=== PATIENT | male | born 1940 | race Caucasian/White ===

== ENCOUNTER 2019-07-19 04:14 | Inpatient (IN) | payer OTHER ==
[2019-07-19] VITALS (17 sets, daily range): BP systolic 64–144
[~2019-07-19] VITALS: Ht 175.3 cm; Wt 94.8 kg
[2019-07-19] MEDS ORDERED: NACL 0.9% 1,000 ML IV ONE ×2 (04:24→06:45)
--- NOTE | 2019-07-19 04:24 | NUR ---
Pt BIB [facility] from home with c/o altered mental status, paleness, diaphoretic and dark stool. Pt A&Ox4. 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 Per son, pt has history of seizure, DM, hypertension, high cholesterol and CVA. Per EMS, blood glucose was 546 en route. Per EMS, 20 g started on right hand and 1 bolus NS started. Blood glucose is 501 upon arrival to ER. Per son, pt had one episode of black tarry stool today. Upon assessment, pt is diaphoretic. Pt denies pain at this time. Breath sounds bilaterally clear with no use of accessory muscles. Will continue to monitor.
--- NOTE | 2019-07-19 04:25 | NUR ---
Placed in room 03 . Placed on groundwater monitoring technician, blood pressure machine and pulse oximeter. To gown for exam. Side rails up. Report given to Kayleigh HARRIS.
[2019-07-19] MEDS ORDERED: HUM100IN SQ (04:30)
[2019-07-19] MEDS ORDERED: TAMS-11 PO (04:30)
[2019-07-19] MEDS ORDERED: CLOP75TA32 PO (04:30)
[2019-07-19] MEDS ORDERED: ASPI-1153 PO (04:30)
[2019-07-19] MEDS ORDERED: FERR-69 PO (04:30)
[2019-07-19] MEDS ORDERED: DUTA0.5C PO (04:30)
[2019-07-19] MEDS ORDERED: LISI-600 PO (04:30)
[2019-07-19] MEDS ORDERED: ATOR-1 PO (04:30)
--- NOTE | 2019-07-19 04:31 | NUR ---
Medication reconciliation completed with information provided by patient's medication bottles. Any prior medication reconciliation on file was reviewed and corrected.
--- NOTE | 2019-07-19 04:35 | NUR ---
ER Dr. Hoffman at bedside examining patient.
--- NOTE | 2019-07-19 04:40 | NUR ---
1 episode of 200ml of bloody emesis. Dr. Hoffman notified
[2019-07-19] MEDS ORDERED: PANTOPRAZOLE SODIUM 80 MG in NS 100 ML IV ONE (04:45)
[2019-07-19] MEDS ORDERED: PANTOPRAZOLE SODIUM 40 MG in NS 50 ML IV ONE (04:45)
[2019-07-19] MEDS ORDERED: ONDANSETRON HCL 4 MG/2 ML VIAL IVP ONE (04:45)
[2019-07-19] MEDS ORDERED: INSULIN REGULAR, HUMAN 10 UNITS/0.1 ML INJ IVP ONE (04:45)
--- NOTE | 2019-07-19 04:45 | NUR ---
# 20 gauge angiocath placed to L AC. Use of asceptic technique. Opsite placed over site. Blood return noted. Blood for lab drawn from site. Flushed with 10 cc of normal saline. No evidence of infiltration noted. Patient tolerated well.
--- NOTE | 2019-07-19 04:50 | NUR ---
KIMBERLY Person at bedside medicating pt.
--- NOTE | 2019-07-19 04:50 | NUR ---
Radiology at bedside.
[2019-07-19] MEDS ORDERED: PANTOPRAZOLE SODIUM 40 MG/VIAL (PROTONIX) ONE ×2 (05:00→06:07)
[2019-07-19 05:06] LABS: BASOPHILS % (AUTO) 0.2 % (0.0-2.0); LYMPHOCYTES # (AUTO) 0.8 K/uL (1.0-5.5); MEAN CORPUSCULAR HEMOGLOBIN 31 pg (27-31); MEAN CORPUSCULAR HGB CONC 33 % (32-36); MEAN CORPUSCULAR VOLUME 93 fL (79.0-98.0); MONOCYTES # (AUTO) 0.3 K/uL (0.0-1.0); MONOCYTES % (AUTO) 2.8 % (1.7-9.3); NEUTROPHILS # (AUTO) 10.7 K/uL (1.8-7.7); PLATELET COUNT (AUTO) 259 K/uL (130-430); RED BLOOD CELL COUNT(AUTO) 2.28 MIL/uL (4.2-6.2); RED CELL DISTRIBUTION WIDTH 14.2 % (9.0-15.0); WHITE BLOOD COUNT (AUTO) 11.9 K/uL (4.8-10.8)
[2019-07-19 05:09] LABS: HEMATOCRIT 21.3 % (36-54)
--- NOTE | 2019-07-19 05:11 | NUR ---
Provided pt with urinal. Pt voided 200 ML of light yellow urine. Urine sample collected and sent to lab. Will continue to monitor.
[2019-07-19 05:22] LABS: ANION GAP 16 (5-15); CALCIUM 7.6 mg/dL (8.4-11.0); CHLORIDE 103 mmol/L (98-107); CREATININE 2.09 mg/dL (0.55-1.30); POTASSIUM 5.6 mmol/L (3.5-5.1); PROTHROMBIN TIME 10.3 SECS (9.5-12.5); SODIUM SERUM 134 mmol/L (136-145); UREA NITROGEN, BLOOD 94 mg/dL (8-21)
[2019-07-19 05:25] LABS: ALANINE AMINOTRANSFERASE 31 U/L (12-78); ALBUMIN 2.4 g/dL (3.4-4.8); ASPARTATE AMINOTRANSFERASE 15 U/L (10-37); TOTAL BILIRUBIN 0.1 mg/dL (0.0-1.0)
[2019-07-19 05:37] LABS: GLUCOSE 542 mg/dL (70-99)
--- NOTE | 2019-07-19 06:00 | NUR ---
Pt medicated per MD orders. Pt tolerated well. Will continue to monitor.
[2019-07-19 06:28] LABS: BILIRUBIN,URINE NEGATIVE (NEGATIVE); BLOOD, URINE NEGATIVE (NEGATIVE); CLARITY/URINE CLEAR (CLEAR); COLOR,URINE YELLOW (YELLOW); GLUCOSE,URINE 3+ (NEGATIVE); KETONES,URINE TRACE (NEGATIVE); LEUKOCYTE ESTERASE ,URINE NEGATIVE (NEGATIVE); NITRITE, URINE NEGATIVE (NEGATIVE); PH,URINE 5.5 (5.0-8.0); PROTEIN URINE TRACE (NEGATIVE); UROBILINOGEN,URINE 0.2 (0.2-1.0)
[2019-07-19 06:38] LABS: BACTERIA,URINE FEW /HPF (None Seen); RBC,URINE 0-3 /HPF (0-3); WBC,URINE 0-3 /HPF (0-3)
--- NOTE | 2019-07-19 07:11 | NUR ---
Report given to KIMBERLY George to endorse all care.
--- NOTE | 2019-07-19 07:30 | NUR ---
PT RESTING IN BED, FAMILY AT BEDSIDE VSS
[2019-07-19 08:26] LABS: HEMOGLOBIN 5.6 g/dL (14.0-18.0)
[2019-07-19 08:27] LABS: HEMATOCRIT 17.5 % (36-54)
[2019-07-19] MEDS ORDERED: PANTOPRAZOLE SODIUM 40 MG/VIAL (PROTONIX) IVP SCH (09:00)
--- NOTE | 2019-07-19 09:05 | NUR ---
Transferred Pt arrived to ICU via gurney from ER. Pt placed on in room monitor. Bedside report received from Ariel.
--- NOTE | 2019-07-19 09:10 | NUR ---
Patient will be admitted to [facility]. Admitted to ICU3 unit. Will go to room ICU. Belongings list completed. Complete and up to date summary report printed. SBAR report to be given at bedside with opportunity for questions. BEDSIDE REPORT GIVEN TO MIKAYLA.
--- NOTE | 2019-07-19 09:20 | NUR ---
CHG Pt provided CHG tolerated well.
--- NOTE | 2019-07-19 09:34 | NUR ---
CONSULTATION PAGED PRIORITY: ROUTINE REASON FOR CONSULTATION?:UPPER GI BLEED WAS CONSULT CALLED:Y PERSON WHO WAS NOTIFIED:ANA CONSULTING PHYSICIAN:BRADY HEALY PLANT TECHNICIAN SPECIALTY:GI PLANT TECHNICIAN PHONE NUMBER:[phone] REQUESTING LUIS FERNANDO Fraire
--- NOTE | 2019-07-19 09:37 | NUR ---
NEPHROLOGY CONSULT TELLY LONG IS IN ICU DEPARTMENT AND ALREADY AWARE.
[2019-07-19] MEDS ORDERED: DEXTROSE 50% JECT 50 ML DISP.SYRIN IVP PRN (09:45)
[2019-07-19] MEDS ORDERED: NOREPINEPHRINE BITARTRATE 8 MG in NS 242 ML IV PRN (09:45)
[2019-07-19] MEDS ORDERED: LORazepam 2 MG/ML VIAL ONE (10:23)
[2019-07-19 10:32] LABS: BASOPHILS % (AUTO) 0.2 % (0.0-2.0); LYMPHOCYTES # (AUTO) 1.2 K/uL (1.0-5.5); MEAN CORPUSCULAR HEMOGLOBIN 30 pg (27-31); MEAN CORPUSCULAR HGB CONC 32 % (32-36); MEAN CORPUSCULAR VOLUME 95 fL (79.0-98.0); MONOCYTES # (AUTO) 0.5 K/uL (0.0-1.0); MONOCYTES % (AUTO) 3.1 % (1.7-9.3); NEUTROPHILS # (AUTO) 13.1 K/uL (1.8-7.7); NEUTROPHILS % (AUTO) 88.7 % (40.0-70.0); PLATELET COUNT (AUTO) 234 K/uL (130-430); RED BLOOD CELL COUNT(AUTO) 2.03 MIL/uL (4.2-6.2); RED CELL DISTRIBUTION WIDTH 14.4 % (9.0-15.0); WHITE BLOOD COUNT (AUTO) 14.7 K/uL (4.8-10.8)
[2019-07-19 10:45] LABS: HEMATOCRIT 19.2 % (36-54)
[2019-07-19 11:00] LABS: ACETONE, SERUM NEGATIVE (NEGATIVE)
[2019-07-19] MEDS ORDERED: PIPERACILLIN/TAZO 2.25G/DEX-IS 50 ML IV ONE (11:00)
[2019-07-19] MEDS: NACL 0.9% 1,000 ML IV SCH ×2 (11:01→17:09)
[2019-07-19 11:05] LABS: ALANINE AMINOTRANSFERASE 27 U/L (12-78); ALBUMIN 2.2 g/dL (3.4-4.8); ANION GAP 17 (5-15); ASPARTATE AMINOTRANSFERASE 11 U/L (10-37); CALCIUM 7.2 mg/dL (8.4-11.0); CHLORIDE 107 mmol/L (98-107); CREATININE 2.18 mg/dL (0.55-1.30); PHOSPHORUS 3.4 mg/dL (2.7-4.5); POTASSIUM 5.6 mmol/L (3.5-5.1); SODIUM SERUM 137 mmol/L (136-145); TOTAL BILIRUBIN 0.1 mg/dL (0.0-1.0)
[2019-07-19 11:18] LABS: GLUCOSE 533 mg/dL (70-99); UREA NITROGEN, BLOOD 104 mg/dL (8-21)
--- NOTE | 2019-07-19 12:22 | NUR ---
KOLB CATH: # 16 FR Kolb catheter with 10 cc bulb inserted with use of sterile technique. Bulb inflated with 10 cc sterile water. Immediate return of 100 cc clear yellow urine noted. Bedside drainage bag placed below level of bladder. Pt tolerated procedure well.
--- NOTE | 2019-07-19 12:23 | NUR ---
PAGED PAGED GARRISON CHUA FARHAD AT [phone] SPOKE WITH KEVIN.
[2019-07-19] MEDS: INSULIN REGULAR, HUMAN 100 UNITS in NS 99 ML IV PRN ×2 (12:45)
[2019-07-19] MEDS ORDERED: SODIUM BICARBONATE 8.4% VIAL 50 MEQ/50 ML VIAL ONE (12:47)
--- NOTE | 2019-07-19 13:33 | NUR ---
CONSULTATION PAGED PRIORITY: ROUTINE REASON FOR CONSULTATION?:DKA WAS CONSULT CALLED:Y PERSON WHO WAS NOTIFIED:NICK CONSULTING PHYSICIAN:ADAM QUILES SHIPPING SPECIALIST SPECIALTY:ENDO SHIPPING SPECIALIST PHONE NUMBER:[phone] REQUESTING PYHSICIANl:LUIS FERNANDO ADKINS
--- NOTE | 2019-07-19 13:55 | NUR ---
Susan Carlisle RN titrate insulin drip from 5 units to 6 units.
[2019-07-19] MEDS: PANTOPRAZOLE SODIUM 40 MG in NS 50 ML IV SCH ×4 (14:22→23:14)
[2019-07-19] MEDS ORDERED: fentaNYL CITRATE/PF 100 MCG/2 ML AMP ONE ×2 (14:49)
[2019-07-19] MEDS ORDERED: MIDAZOLAM HCL 5 MG/5 ML VIAL ONE ×2 (14:49→14:50)
[2019-07-19] MEDS ORDERED: SIMETHICONE 40 MG/0.6 ML ML ONE (14:50)
[2019-07-19] MEDS ORDERED: METOCLOPRAMIDE HCL 10 MG/2 ML VIAL IVP ONE (15:30)
[2019-07-19 16:09] LABS: BASOPHILS % (AUTO) 0.1 % (0.0-2.0); HEMATOCRIT 26.4 % (36-54); HEMOGLOBIN 8.6 g/dL (14.0-18.0); LYMPHOCYTES # (AUTO) 2.5 K/uL (1.0-5.5); LYMPHOCYTES % (AUTO) 13.6 % (20.5-51.5); MEAN CORPUSCULAR HEMOGLOBIN 30 pg (27-31); MEAN CORPUSCULAR HGB CONC 33 % (32-36); MONOCYTES # (AUTO) 2.1 K/uL (0.0-1.0); MONOCYTES % (AUTO) 11.7 % (1.7-9.3); NEUTROPHILS # (AUTO) 13.6 K/uL (1.8-7.7); NEUTROPHILS % (AUTO) 74.6 % (40.0-70.0); PLATELET COUNT (AUTO) 197 K/uL (130-430); RED BLOOD CELL COUNT(AUTO) 2.87 MIL/uL (4.2-6.2); WHITE BLOOD COUNT (AUTO) 18.2 K/uL (4.8-10.8)
[2019-07-19 16:12] LABS: MEAN CORPUSCULAR VOLUME 92 fL (79.0-98.0)
[2019-07-19 16:31] LABS: ANION GAP 14 (5-15); CALCIUM 7.3 mg/dL (8.4-11.0); CHLORIDE 108 mmol/L (98-107); CREATININE 2.31 mg/dL (0.55-1.30); POTASSIUM 5.5 mmol/L (3.5-5.1); SODIUM SERUM 136 mmol/L (136-145)
[2019-07-19 16:37] LABS: GLUCOSE 512 mg/dL (70-99); UREA NITROGEN, BLOOD 116 mg/dL (8-21)
--- NOTE | 2019-07-19 17:05 | NUR ---
Insulin Titration Nursing Note Witnessed KIMBERLY Carlisle titrate insulin drip from 6 units to 7 units.
[2019-07-19] MEDS ORDERED: INSULIN REGULAR, HUMAN 100 UNITS/ML, 10 ML VIAL IVP ONE (17:15)
[2019-07-19] MEDS ORDERED: NS IV ONE (18:15)
[2019-07-19] MEDS ORDERED: PHENYTOIN SODIUM IV ONE (18:15)
[2019-07-19] MEDS: PIPERACILLIN/TAZO 2.25G/DEX-IS 50 ML IV SCH ×2 (18:57→23:12)
--- NOTE | 2019-07-19 19:07 | NUR ---
Witnessed insulin drip tapered from 7 units to 6 units at this time.
--- NOTE | 2019-07-19 19:15 | NUR ---
Report Report given to Philippe HARRIS using SBAR.
--- NOTE | 2019-07-19 20:00 | NUR ---
SHIFT ASSESSMENT Received Pt from AM shift RN. Pt's eyes closed responses to tactile stimuli. VSS tolerating levophed at 4mcg/min. On room air with 98% O2 saturation. Protonix drip running tolerating well. Blood sugar check every 1 hour with insulin drip running at 6units. REX PICC in placed with no infiltration noted with good blood return. Rea catheter in placed draining clear yellow urine to gravity. Safety precaution observed, no skin issues noted, turned and repositioned every 2 hours. Will continue to monitor Pt.
[2019-07-19] MEDS: METOCLOPRAMIDE HCL 10 MG/2 ML VIAL IVP SCH (21:13)
--- NOTE | 2019-07-19 22:00 | NUR ---
INSULIN DRIP I witnessed Philippe HARRIS decrease insulin drip from 6units per hour to 5 units per hour.
--- NOTE | 2019-07-19 23:40 | NUR ---
Spoke with Dr. Lynn regarding Pt's status. Orders received and will give additional 2UNITS PRBC.
[2019-07-20] VITALS (23 sets, daily range): BP systolic 92–145
[2019-07-20 01:10] LABS: BASOPHILS # (AUTO) 0.1 K/uL (0.0-0.2); BASOPHILS % (AUTO) 0.4 % (0.0-2.0); LYMPHOCYTES # (AUTO) 3.1 K/uL (1.0-5.5); LYMPHOCYTES % (AUTO) 15.9 % (20.5-51.5); MEAN CORPUSCULAR HEMOGLOBIN 30 pg (27-31); MEAN CORPUSCULAR HGB CONC 33 % (32-36); MEAN CORPUSCULAR VOLUME 91 fL (79.0-98.0); MONOCYTES # (AUTO) 2.4 K/uL (0.0-1.0); MONOCYTES % (AUTO) 12.1 % (1.7-9.3); NEUTROPHILS % (AUTO) 71.6 % (40.0-70.0); PLATELET COUNT (AUTO) 214 K/uL (130-430); RED BLOOD CELL COUNT(AUTO) 2.13 MIL/uL (4.2-6.2); RED CELL DISTRIBUTION WIDTH 14.1 % (9.0-15.0); WHITE BLOOD COUNT (AUTO) 19.6 K/uL (4.8-10.8)
[2019-07-20 01:18] LABS: ANION GAP 12 (5-15); CHLORIDE 112 mmol/L (98-107); CREATININE 2.43 mg/dL (0.55-1.30); GLUCOSE 355 mg/dL (70-99); HEMATOCRIT 19.4 % (36-54); HEMOGLOBIN 6.5 g/dL (14.0-18.0); PHOSPHORUS 2.5 mg/dL (2.7-4.5); POTASSIUM 5.5 mmol/L (3.5-5.1); SODIUM SERUM 139 mmol/L (136-145)
[2019-07-20 01:21] LABS: CALCIUM 6.8 mg/dL (8.4-11.0)
[2019-07-20 01:22] LABS: UREA NITROGEN, BLOOD 144 mg/dL (8-21)
[2019-07-20 01:23] LABS: THYROID STIMULATING HORMONE 0.59 uIu/mL (0.36-3.74)
--- NOTE | 2019-07-20 02:00 | NUR ---
INSULIN DRIP I witnessed Philippe HARRIS decrease insulin drip from 5units per hour to 4units per hour.
[2019-07-20] MEDS ORDERED: CALCIUM GLUCONATE 1 GM in NS 50 ML IV ONE (03:30)
--- NOTE | 2019-07-20 03:40 | NUR ---
Spoke with Dr. Radford regarding Pt's status. Orders received and will carry out orders.
[2019-07-20] MEDS ORDERED: CALCIUM GLUCONATE 1 GM/10 ML VIAL ONE (03:47)
[2019-07-20] MEDS: NACL 0.9% 1,000 ML IV SCH (04:03)
[2019-07-20] MEDS: PANTOPRAZOLE SODIUM 40 MG in NS 50 ML IV SCH ×4 (04:11→23:54)
[2019-07-20] MEDS: D5/0.45 NS 1,000 ML IV SCH ×2 (05:00→10:44)
[2019-07-20] MEDS: METOCLOPRAMIDE HCL 10 MG/2 ML VIAL IVP SCH ×2 (05:33→14:10)
[2019-07-20] MEDS: PIPERACILLIN/TAZO 2.25G/DEX-IS 50 ML IV SCH ×4 (05:33→23:55)
[2019-07-20] MEDS: INSULIN REGULAR, HUMAN 100 UNITS in NS 99 ML IV PRN ×2 (06:12)
[2019-07-20 07:20] LABS: BASOPHILS % (AUTO) 0.2 % (0.0-2.0); HEMATOCRIT 24.9 % (36-54); HEMOGLOBIN 8.4 g/dL (14.0-18.0); LYMPHOCYTES # (AUTO) 2.9 K/uL (1.0-5.5); LYMPHOCYTES % (AUTO) 17.6 % (20.5-51.5); MEAN CORPUSCULAR HEMOGLOBIN 30 pg (27-31); MEAN CORPUSCULAR HGB CONC 34 % (32-36); MEAN CORPUSCULAR VOLUME 90 fL (79.0-98.0); MONOCYTES # (AUTO) 2.4 K/uL (0.0-1.0); MONOCYTES % (AUTO) 14.7 % (1.7-9.3); NEUTROPHILS # (AUTO) 11.1 K/uL (1.8-7.7); NEUTROPHILS % (AUTO) 67.5 % (40.0-70.0); PLATELET COUNT (AUTO) 192 K/uL (130-430); RED BLOOD CELL COUNT(AUTO) 2.76 MIL/uL (4.2-6.2); WHITE BLOOD COUNT (AUTO) 16.4 K/uL (4.8-10.8)
[2019-07-20 07:21] LABS: ANION GAP 13 (5-15); CALCIUM 7.2 mg/dL (8.4-11.0); CHLORIDE 112 mmol/L (98-107); CREATININE 2.61 mg/dL (0.55-1.30); GLUCOSE 281 mg/dL (70-99); PHENYTOIN (DILANTIN) 3.1 ug/mL (10.0-20.0); POTASSIUM 4.2 mmol/L (3.5-5.1); SODIUM SERUM 141 mmol/L (136-145)
[2019-07-20 07:24] LABS: INR 1.1 (0.80-1.20); PROTHROMBIN TIME 11.1 SECS (9.5-12.5); UREA NITROGEN, BLOOD 136 mg/dL (8-21)
--- NOTE | 2019-07-20 07:35 | NUR ---
IV lines and skin checked with oncoming RN. Report given via SBAR
--- NOTE | 2019-07-20 08:00 | NUR ---
Opening Note: Received plan of care via sbar from endorsing nurse Nelli HARRIS. Completed patient round.
--- NOTE | 2019-07-20 09:00 | NUR ---
Paged Dr. Montoya and left message with Dr. Radford. Paged to provide critical value for BUN.
--- NOTE | 2019-07-20 09:15 | NUR ---
Nutrition Update Rodrigo Scale 13 noted. Pt admitted for upper GI bleed. Diet: NPO BMI: 30.9 kg/m2 RD to follow per nutrition care standards.
[2019-07-20 09:51] LABS: ANION GAP 14 (5-15); CHLORIDE 114 mmol/L (98-107); CREATININE 2.42 mg/dL (0.55-1.30); GLUCOSE 235 mg/dL (70-99); PHOSPHORUS 3.5 mg/dL (2.7-4.5); POTASSIUM 4.1 mmol/L (3.5-5.1); SODIUM SERUM 145 mmol/L (136-145)
[2019-07-20 09:53] LABS: UREA NITROGEN, BLOOD 136 mg/dL (8-21)
[2019-07-20] MEDS ORDERED: INSULIN NPH 100 UNITS/ML 10 ML VIAL SUBCUT ONE ×2 (09:56→10:00)
--- NOTE | 2019-07-20 10:00 | NUR ---
Dr. Watts at bedside. will new orders.
--- NOTE | 2019-07-20 11:33 | NUR ---
Dr. Montoya at bedside. Provided critical BUN.
--- NOTE | 2019-07-20 11:51 | NUR ---
CONSULT FOR DR PANDYA FOR CHELI PLACEMENT DIALED NUMBER [phone] SPOKE TO
[2019-07-20] MEDS: INSULIN LISPRO SLIDING SCALE 100 UNITS/ML VIAL (humaLOG) SUBCUT PRN ×3 (12:14→18:43)
--- NOTE | 2019-07-20 13:33 | NUR ---
Dr. Núñez at bedside inserting a dialysis catheter. He requested that pt be given sedation to hold still as patient is bending legs and moving arms. Medicated with Ativan 1 mg IVP.
[2019-07-20] MEDS ORDERED: HEPARIN SODIUM,PORCINE 5000 UNITS/ML VIAL ONE ×2 (13:48→20:08)
[2019-07-20] MEDS: LORazepam 2 MG/ML VIAL IVP PRN (13:49)
[2019-07-20] MEDS ORDERED: fentaNYL CITRATE/PF 100 MCG/2 ML AMP ONE (15:57)
[2019-07-20] MEDS ORDERED: SIMETHICONE 40 MG/0.6 ML ML ONE (15:58)
[2019-07-20] MEDS: MIDAZOLAM HCL 5 MG/5 ML VIAL ONE ×2 (16:37→16:41)
[2019-07-20] MEDS ORDERED: EPINEPHrine JECT 0.1 MG/ML SYR IVP ONE (17:17)
[2019-07-20 17:34] LABS: BASOPHILS % (AUTO) 0.3 % (0.0-2.0); EOSINOPHILS % (AUTO) 0.1 % (0.0-4.0); HEMATOCRIT 22.9 % (36-54); LYMPHOCYTES # (AUTO) 2.2 K/uL (1.0-5.5); MEAN CORPUSCULAR HEMOGLOBIN 30 pg (27-31); MEAN CORPUSCULAR HGB CONC 34 % (32-36); MEAN CORPUSCULAR VOLUME 91 fL (79.0-98.0); MONOCYTES # (AUTO) 1.9 K/uL (0.0-1.0); MONOCYTES % (AUTO) 12.5 % (1.7-9.3); NEUTROPHILS # (AUTO) 10.8 K/uL (1.8-7.7); NEUTROPHILS % (AUTO) 72.1 % (40.0-70.0); PLATELET COUNT (AUTO) 186 K/uL (130-430); RED BLOOD CELL COUNT(AUTO) 2.53 MIL/uL (4.2-6.2); RED CELL DISTRIBUTION WIDTH 15.3 % (9.0-15.0)
[2019-07-20] MEDS: INSULIN NPH 100 UNITS/ML 10 ML VIAL SUBCUT SCH (17:35)
[2019-07-20 17:43] LABS: HEMOGLOBIN 7.7 g/dL (14.0-18.0)
--- NOTE | 2019-07-20 19:36 | NUR ---
Closing Note Provided plan of care via sbar to receiving nurse technology education teacher. Completed patient round.
[2019-07-20] MEDS ORDERED: HEPARIN SODIUM,PORCINE 5000 UNITS/ML VIAL SUBCUT ONE ×2 (20:00)
--- NOTE | 2019-07-20 20:58 | NUR ---
PT is received in bed, asleep. Slight SOB with Abd breathing RR 25,on room air. Dialysis is in progress, Pt is arousable to tactie stimulus. B/L wrist restraints in place. Protonix drip at 8 mg/hr, is infusing via REX PICC. [id number] at 100 cc/hr infusing via LFA peripheral sitel. Rea cath is intact and patent, and draining clear yellow urine. RIF Rustam catheter in place and is connected for dialysis. Ruperto complete assessment when dialysis is completed.
[2019-07-21] VITALS (19 sets, daily range): BP systolic 103–168
[2019-07-21] MEDS: INSULIN LISPRO SLIDING SCALE 100 UNITS/ML VIAL (humaLOG) SUBCUT PRN ×3 (00:33→18:19)
[2019-07-21] MEDS: METOCLOPRAMIDE HCL 10 MG/2 ML VIAL IVP SCH ×4 (00:36→22:45)
[2019-07-21 03:25] LABS: BASOPHILS # (AUTO) 0.1 K/uL (0.0-0.2); BASOPHILS % (AUTO) 0.6 % (0.0-2.0); EOSINOPHILS # (AUTO) 0.1 K/uL (0.0-0.4); EOSINOPHILS % (AUTO) 0.8 % (0.0-4.0); HEMATOCRIT 22.4 % (36-54); HEMOGLOBIN 7.4 g/dL (14.0-18.0); LYMPHOCYTES # (AUTO) 2.7 K/uL (1.0-5.5); LYMPHOCYTES % (AUTO) 16.6 % (20.5-51.5); MEAN CORPUSCULAR HEMOGLOBIN 30 pg (27-31); MEAN CORPUSCULAR HGB CONC 33 % (32-36); MEAN CORPUSCULAR VOLUME 89 fL (79.0-98.0); MONOCYTES # (AUTO) 1.8 K/uL (0.0-1.0); MONOCYTES % (AUTO) 11.2 % (1.7-9.3); NEUTROPHILS # (AUTO) 11.4 K/uL (1.8-7.7); NEUTROPHILS % (AUTO) 70.8 % (40.0-70.0); PLATELET COUNT (AUTO) 178 K/uL (130-430); WHITE BLOOD COUNT (AUTO) 16.2 K/uL (4.8-10.8)
[2019-07-21] MEDS: PANTOPRAZOLE SODIUM 40 MG in NS 50 ML IV SCH ×5 (04:57→22:45)
[2019-07-21] MEDS: INSULIN NPH 100 UNITS/ML 10 ML VIAL SUBCUT SCH ×2 (07:00→17:47)
--- NOTE | 2019-07-21 07:30 | NUR ---
Opening Note Received plan of care via sbar from endorsing nurse Elida Rueda RN. Completed patient round.
[2019-07-21] MEDS: PIPERACILLIN/TAZO 2.25G/DEX-IS 50 ML IV SCH ×3 (08:12→17:48)
--- NOTE | 2019-07-21 08:14 | NUR ---
rn flight was given hepain to administer after dialysis/
[2019-07-21] MEDS: D5/0.45 NS 1,000 ML IV SCH ×2 (10:42→23:00)
[2019-07-21 11:27] LABS: BASOPHILS # (AUTO) 0.1 K/uL (0.0-0.2); BASOPHILS % (AUTO) 0.5 % (0.0-2.0); EOSINOPHILS # (AUTO) 0.2 K/uL (0.0-0.4); EOSINOPHILS % (AUTO) 1.6 % (0.0-4.0); LYMPHOCYTES # (AUTO) 2.3 K/uL (1.0-5.5); LYMPHOCYTES % (AUTO) 19.1 % (20.5-51.5); MEAN CORPUSCULAR HEMOGLOBIN 31 pg (27-31); MEAN CORPUSCULAR HGB CONC 34 % (32-36); MEAN CORPUSCULAR VOLUME 90 fL (79.0-98.0); MONOCYTES # (AUTO) 1.7 K/uL (0.0-1.0); MONOCYTES % (AUTO) 14.4 % (1.7-9.3); NEUTROPHILS # (AUTO) 7.7 K/uL (1.8-7.7); NEUTROPHILS % (AUTO) 64.4 % (40.0-70.0); PLATELET COUNT (AUTO) 150 K/uL (130-430); RED CELL DISTRIBUTION WIDTH 14.9 % (9.0-15.0); WHITE BLOOD COUNT (AUTO) 11.9 K/uL (4.8-10.8)
[2019-07-21 11:41] LABS: HEMATOCRIT 19.7 % (36-54); HEMOGLOBIN 6.7 g/dL (14.0-18.0)
--- NOTE | 2019-07-21 11:44 | NUR ---
Received call from lab for H/H. Dr. Montoya is aware and has ordered an additional unit of prbc.
--- NOTE | 2019-07-21 12:01 | NUR ---
technology sales specialist at bedside to scan for UGI Bleed.
--- NOTE | 2019-07-21 12:25 | NUR ---
Dietitian Recommendations *Recommend continuing Clear liquid diet per MD orders. *If/when medically appropriate, advance diet to [facility] Renal standard. Please see Nutritional Assessment for details. RADHA, RD
[2019-07-21 18:34] LABS: BASOPHILS % (AUTO) 0.4 % (0.0-2.0); EOSINOPHILS # (AUTO) 0.2 K/uL (0.0-0.4); EOSINOPHILS % (AUTO) 2.1 % (0.0-4.0); HEMATOCRIT 26.7 % (36-54); HEMOGLOBIN 9.1 g/dL (14.0-18.0); LYMPHOCYTES % (AUTO) 17.8 % (20.5-51.5); MEAN CORPUSCULAR HEMOGLOBIN 30 pg (27-31); MEAN CORPUSCULAR HGB CONC 34 % (32-36); MEAN CORPUSCULAR VOLUME 88 fL (79.0-98.0); MONOCYTES # (AUTO) 1.6 K/uL (0.0-1.0); MONOCYTES % (AUTO) 14.4 % (1.7-9.3); NEUTROPHILS # (AUTO) 7.4 K/uL (1.8-7.7); NEUTROPHILS % (AUTO) 65.3 % (40.0-70.0); PLATELET COUNT (AUTO) 144 K/uL (130-430); RED BLOOD CELL COUNT(AUTO) 3.04 MIL/uL (4.2-6.2); RED CELL DISTRIBUTION WIDTH 14.8 % (9.0-15.0); WHITE BLOOD COUNT (AUTO) 11.3 K/uL (4.8-10.8)
[2019-07-21 18:42] LABS: ANION GAP 7 (5-15); CHLORIDE 108 mmol/L (98-107); CREATININE 1.68 mg/dL (0.55-1.30); GLUCOSE 261 mg/dL (70-99); POTASSIUM 3.1 mmol/L (3.5-5.1); SODIUM SERUM 141 mmol/L (136-145); UREA NITROGEN, BLOOD 51 mg/dL (8-21)
[2019-07-21 18:46] LABS: CALCIUM 6.9 mg/dL (8.4-11.0)
--- NOTE | 2019-07-21 19:44 | NUR ---
Closing Note Provided plan of care via sbar from receiving water filterer helper. Completed patient round.
[2019-07-22] VITALS (22 sets, daily range): BP systolic 126–180
[2019-07-22] MEDS: PIPERACILLIN/TAZO 2.25G/DEX-IS 50 ML IV SCH ×5 (00:12→23:02)
[2019-07-22 01:30] LABS: BASOPHILS # (AUTO) 0.1 K/uL (0.0-0.2); BASOPHILS % (AUTO) 0.7 % (0.0-2.0); EOSINOPHILS # (AUTO) 0.3 K/uL (0.0-0.4); EOSINOPHILS % (AUTO) 2.8 % (0.0-4.0); HEMATOCRIT 26.6 % (36-54); HEMOGLOBIN 9.2 g/dL (14.0-18.0); LYMPHOCYTES # (AUTO) 2.6 K/uL (1.0-5.5); LYMPHOCYTES % (AUTO) 22.4 % (20.5-51.5); MEAN CORPUSCULAR HEMOGLOBIN 30 pg (27-31); MEAN CORPUSCULAR HGB CONC 35 % (32-36); MEAN CORPUSCULAR VOLUME 88 fL (79.0-98.0); MONOCYTES # (AUTO) 1.6 K/uL (0.0-1.0); MONOCYTES % (AUTO) 13.6 % (1.7-9.3); NEUTROPHILS # (AUTO) 7.1 K/uL (1.8-7.7); NEUTROPHILS % (AUTO) 60.5 % (40.0-70.0); PLATELET COUNT (AUTO) 162 K/uL (130-430); RED BLOOD CELL COUNT(AUTO) 3.03 MIL/uL (4.2-6.2); RED CELL DISTRIBUTION WIDTH 15.1 % (9.0-15.0); WHITE BLOOD COUNT (AUTO) 11.8 K/uL (4.8-10.8)
[2019-07-22] MEDS: PANTOPRAZOLE SODIUM 40 MG in NS 50 ML IV SCH ×5 (03:16→23:02)
[2019-07-22 05:58] LABS: BASOPHILS # (AUTO) 0.1 K/uL (0.0-0.2); BASOPHILS % (AUTO) 0.7 % (0.0-2.0); EOSINOPHILS # (AUTO) 0.3 K/uL (0.0-0.4); EOSINOPHILS % (AUTO) 2.9 % (0.0-4.0); HEMATOCRIT 27.4 % (36-54); HEMOGLOBIN 9.3 g/dL (14.0-18.0); LYMPHOCYTES # (AUTO) 2.5 K/uL (1.0-5.5); MEAN CORPUSCULAR HEMOGLOBIN 30 pg (27-31); MEAN CORPUSCULAR HGB CONC 34 % (32-36); MEAN CORPUSCULAR VOLUME 88 fL (79.0-98.0); MONOCYTES # (AUTO) 1.5 K/uL (0.0-1.0); MONOCYTES % (AUTO) 13.1 % (1.7-9.3); NEUTROPHILS # (AUTO) 7.1 K/uL (1.8-7.7); NEUTROPHILS % (AUTO) 61.3 % (40.0-70.0); PLATELET COUNT (AUTO) 156 K/uL (130-430); WHITE BLOOD COUNT (AUTO) 11.6 K/uL (4.8-10.8)
[2019-07-22 06:24] LABS: ALANINE AMINOTRANSFERASE 43 U/L (12-78); ALBUMIN 2.4 g/dL (3.4-4.8); ANION GAP 8 (5-15); ASPARTATE AMINOTRANSFERASE 82 U/L (10-37); CALCIUM 7.3 mg/dL (8.4-11.0); CHLORIDE 110 mmol/L (98-107); CREATININE 1.51 mg/dL (0.55-1.30); GLUCOSE 134 mg/dL (70-99); SODIUM SERUM 143 mmol/L (136-145); TOTAL BILIRUBIN 0.3 mg/dL (0.0-1.0); UREA NITROGEN, BLOOD 38 mg/dL (8-21)
[2019-07-22 06:34] LABS: POTASSIUM 2.9 mmol/L (3.5-5.1)
[2019-07-22] MEDS ORDERED: KCL 20 mEq in 100 mL (PREMIX) 100 ML IV ONE (07:00)
[2019-07-22] MEDS: INSULIN LISPRO SLIDING SCALE 100 UNITS/ML VIAL (humaLOG) SUBCUT PRN ×4 (08:06→22:09)
[2019-07-22] MEDS ORDERED: INSULIN GLARGINE 100 UNITS/ML 10 ML VIAL SUBCUT SCH (09:00)
--- NOTE | 2019-07-22 15:28 | NUR ---
PT RECIEVED AWAKE/AL3ERT, FOLLOWING COMMANDS BUT extremely HARD OF HEARING, PT NEEDS NOTEPAD ALL THE TIME WITH MY INSTRUCTIONS AND HIS QUESTIONS/PT NOW TO CLEAR LIQUID DIET, TOLERATES 100% OF LUNCH AND DINNER, PT PASSED X 2 BMS IN BED, CLEANED PT WHILE PT TURNED HIMSELF, PT DOES NOT HEAR WELL AT ALL//PT VS STABLE, JUST HUNGRY PT ATE ALL LUNCH AND WANTED more//CONTINUED FOLLOWING COMMANDS AND REQUESTED TO WALK, BUT PT INCONTINENT OF STOOL AND BY THE TIME I GOT HIM A BEDPAN, HE ALREADY HAD DONE IT/PT OTHERWISE COOPERATIVE, AND HIS STOOL IS LOOSE BUT COLORED BLACK, GREEN AND BROWN//NO OBVIOUS BLOOD SEEN IN STOOL, AFEBRILE//MW
[2019-07-22] MEDS ORDERED: INSULIN GLARGINE 100 UNITS/ML 10 ML VIAL SUBCUT ONE (16:45)
[2019-07-22 17:28] LABS: BASOPHILS # (AUTO) 0.1 K/uL (0.0-0.2); BASOPHILS % (AUTO) 0.5 % (0.0-2.0); EOSINOPHILS # (AUTO) 0.3 K/uL (0.0-0.4); EOSINOPHILS % (AUTO) 3.4 % (0.0-4.0); HEMATOCRIT 26.8 % (36-54); LYMPHOCYTES # (AUTO) 1.8 K/uL (1.0-5.5); LYMPHOCYTES % (AUTO) 19.3 % (20.5-51.5); MEAN CORPUSCULAR HEMOGLOBIN 30 pg (27-31); MEAN CORPUSCULAR HGB CONC 34 % (32-36); MEAN CORPUSCULAR VOLUME 89 fL (79.0-98.0); MONOCYTES # (AUTO) 1.3 K/uL (0.0-1.0); MONOCYTES % (AUTO) 13.5 % (1.7-9.3); NEUTROPHILS # (AUTO) 5.9 K/uL (1.8-7.7); NEUTROPHILS % (AUTO) 63.3 % (40.0-70.0); PLATELET COUNT (AUTO) 161 K/uL (130-430); RED CELL DISTRIBUTION WIDTH 14.9 % (9.0-15.0); WHITE BLOOD COUNT (AUTO) 9.3 K/uL (4.8-10.8)
[2019-07-22] MEDS: KCL 20 mEq in 100 mL (PREMIX) 100 ML IV SCH ×2 (17:33→18:04)
[2019-07-22] MEDS: 0.45% NACL 1,000 ML IV SCH (18:04)
--- NOTE | 2019-07-22 19:29 | NUR ---
Opening Note Received plan of care via sbar from endorsing nurse Ronald HARRIS (registry). Completed patient round. Safety measures met.
--- NOTE | 2019-07-22 19:52 | NUR ---
Family at bedside reported that their dad has not slept well the last few nights. Called Dr. Zelaya and received orders for Restoril 15 mg once PO.
[2019-07-22] MEDS: TEMAZEPAM 15 MG CAPSULE PO PRN (22:08)
--- NOTE | 2019-07-22 23:07 | NUR ---
Patient is laying in bed with eyes closed. Patient resting. Patient not presenting any signs of acute distress.
[2019-07-23] VITALS (24 sets, daily range): BP systolic 124–166
--- NOTE | 2019-07-23 01:10 | NUR ---
Patient awake and agitated. Patient is touching picc line and confused. Addendum: 07/23/19 at 0124 by Alvino Romero RN Tried to reorient patient. Patient acknowledged to not touch and pull on picc line.
[2019-07-23] MEDS: LORazepam 2 MG/ML VIAL IVP PRN (02:36)
[2019-07-23] MEDS: PIPERACILLIN/TAZO 2.25G/DEX-IS 50 ML IV SCH ×3 (05:26→18:34)
[2019-07-23] MEDS: PANTOPRAZOLE SODIUM 40 MG in NS 50 ML IV SCH (05:26)
[2019-07-23 05:58] LABS: BASOPHILS # (AUTO) 0.1 K/uL (0.0-0.2); BASOPHILS % (AUTO) 0.5 % (0.0-2.0); EOSINOPHILS # (AUTO) 0.5 K/uL (0.0-0.4); EOSINOPHILS % (AUTO) 4.3 % (0.0-4.0); HEMATOCRIT 27.4 % (36-54); HEMOGLOBIN 9.2 g/dL (14.0-18.0); LYMPHOCYTES # (AUTO) 2.4 K/uL (1.0-5.5); LYMPHOCYTES % (AUTO) 21.3 % (20.5-51.5); MEAN CORPUSCULAR HEMOGLOBIN 30 pg (27-31); MEAN CORPUSCULAR HGB CONC 34 % (32-36); MEAN CORPUSCULAR VOLUME 89 fL (79.0-98.0); MONOCYTES # (AUTO) 1.4 K/uL (0.0-1.0); MONOCYTES % (AUTO) 11.9 % (1.7-9.3); NEUTROPHILS # (AUTO) 7.1 K/uL (1.8-7.7); PLATELET COUNT (AUTO) 174 K/uL (130-430); RED BLOOD CELL COUNT(AUTO) 3.09 MIL/uL (4.2-6.2); RED CELL DISTRIBUTION WIDTH 15.3 % (9.0-15.0); WHITE BLOOD COUNT (AUTO) 11.4 K/uL (4.8-10.8)
[2019-07-23 06:03] LABS: ANION GAP 8 (5-15); CALCIUM 7.4 mg/dL (8.4-11.0); CHLORIDE 111 mmol/L (98-107); CREATININE 1.26 mg/dL (0.55-1.30); GLUCOSE 131 mg/dL (70-99); SODIUM SERUM 142 mmol/L (136-145); UREA NITROGEN, BLOOD 22 mg/dL (8-21)
[2019-07-23 06:41] LABS: POTASSIUM 2.9 mmol/L (3.5-5.1)
--- NOTE | 2019-07-23 06:42 | NUR ---
Critical Value Paged Dr. Zelaya to report K 2.9.
[2019-07-23] MEDS ORDERED: POTASSIUM CHLORIDE 20 MEQ/PKT PACKET PO ONE (07:00)
--- NOTE | 2019-07-23 07:14 | NUR ---
Closing Note Provided plan of care via sbar to receiving nurse Leatha HARRIS. Completed patient round.
--- NOTE | 2019-07-23 07:15 | NUR ---
Closing Note Provided plan of care via sbar to receiving nurse Leatha HARRIS. Completed patient round.
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
[2019-07-23] MEDS: PANTOPRAZOLE SODIUM 40 MG/VIAL (PROTONIX) IVP SCH ×2 (10:00→21:20)
[2019-07-23] MEDS: INSULIN LISPRO SLIDING SCALE 100 UNITS/ML VIAL (humaLOG) SUBCUT PRN ×2 (12:11→18:47)
[2019-07-23] MEDS: KCL 20 mEq in 100 mL (PREMIX) 100 ML IV SCH ×2 (12:51→14:03)
[2019-07-23] MEDS: 0.45% NACL 1,000 ML IV SCH (12:52)
[2019-07-23] MEDS: INSULIN GLARGINE 100 UNITS/ML 10 ML VIAL SUBCUT SCH (14:01)
--- NOTE | 2019-07-23 19:45 | NUR ---
Initial note Received patient after report from dayshift nurse. Awake and following commands. SHUNGNAK and requires written notes for effective communication. JAMES Easton in place, REX picc in place and patent with IVF infusing as per MD orders. will continue to monitor patient as per Unit protocol.
--- NOTE | 2019-07-23 22:35 | NUR ---
DR OBI Zelaya gave ok to transfer patient to telemetry unit when bed available.
[2019-07-24] VITALS (23 sets, daily range): BP systolic 129–179
--- NOTE | 2019-07-24 00:30 | NUR ---
Incontinent of stool Episode of diarrhea. patient was cleaned, linen and gown changed. patient tolerated well.
[2019-07-24] MEDS: PIPERACILLIN/TAZO 2.25G/DEX-IS 50 ML IV SCH ×4 (01:41→18:05)
[2019-07-24] MEDS: hydrALAZINE HCL 20 MG/ML VIAL IVP PRN (02:09)
--- NOTE | 2019-07-24 05:00 | NUR ---
Resting comfortably. Patient very hard of hearing and requires loud tone of voice for communication. Able to read messages as demonstrated. will continue to monitor as per unit protocol.
[2019-07-24 06:06] LABS: BASOPHILS # (AUTO) 0.1 K/uL (0.0-0.2); BASOPHILS % (AUTO) 0.7 % (0.0-2.0); EOSINOPHILS # (AUTO) 0.5 K/uL (0.0-0.4); HEMATOCRIT 26.5 % (36-54); HEMOGLOBIN 9.2 g/dL (14.0-18.0); LYMPHOCYTES # (AUTO) 2.3 K/uL (1.0-5.5); LYMPHOCYTES % (AUTO) 22.3 % (20.5-51.5); MEAN CORPUSCULAR HEMOGLOBIN 31 pg (27-31); MEAN CORPUSCULAR HGB CONC 35 % (32-36); MEAN CORPUSCULAR VOLUME 88 fL (79.0-98.0); MONOCYTES # (AUTO) 1.2 K/uL (0.0-1.0); MONOCYTES % (AUTO) 11.7 % (1.7-9.3); NEUTROPHILS # (AUTO) 6.2 K/uL (1.8-7.7); NEUTROPHILS % (AUTO) 60.3 % (40.0-70.0); PLATELET COUNT (AUTO) 201 K/uL (130-430); RED BLOOD CELL COUNT(AUTO) 3.01 MIL/uL (4.2-6.2); RED CELL DISTRIBUTION WIDTH 14.8 % (9.0-15.0); WHITE BLOOD COUNT (AUTO) 10.3 K/uL (4.8-10.8)
[2019-07-24 06:15] LABS: ANION GAP 9 (5-15); CALCIUM 7.6 mg/dL (8.4-11.0); CHLORIDE 111 mmol/L (98-107); CREATININE 1.27 mg/dL (0.55-1.30); GLUCOSE 128 mg/dL (70-99); POTASSIUM 3.1 mmol/L (3.5-5.1); SODIUM SERUM 143 mmol/L (136-145); UREA NITROGEN, BLOOD 18 mg/dL (8-21)
[2019-07-24] MEDS ORDERED: POTASSIUM CHLORIDE 20 MEQ TAB.PRT.SR PO ONE (09:15)
[2019-07-24] MEDS: INSULIN GLARGINE 100 UNITS/ML 10 ML VIAL SUBCUT SCH (09:39)
[2019-07-24] MEDS: PANTOPRAZOLE SODIUM 40 MG/VIAL (PROTONIX) IVP SCH ×2 (09:43→21:00)
[2019-07-24] MEDS ORDERED: DIATR MEGLU/DIATRIZ SOD 30 ML SOLUTION PO ONE (10:56)
[2019-07-24] MEDS: INSULIN LISPRO SLIDING SCALE 100 UNITS/ML VIAL (humaLOG) SUBCUT PRN ×3 (13:16→20:52)
--- NOTE | 2019-07-24 15:00 | NUR ---
DR. SWAIN HERE TO SEE PATIENT, WITH ORDERS.
--- NOTE | 2019-07-24 15:12 | NUR ---
Nutrition F/U RD reviewed pt's current EMR record including diet Hx, physician notes, nursing notes, pertinent labs/meds/procedures, care trends, and care activity. Admission Dx: Dx: Upper GI bleed Dx: Upper GI Bleed, Severe Anemia, ARF, Dehydration, Severe Hyperglycemia, H/O HTN. PMH: DM, HTN, BPH per physician notes. 07/20: S/P HD cath placement. Current Diet Order/Nutrition Support: Full liquid x1 day Subjective Info: Pt was seen sleeping at time of RD visit. Per RN, pt ate 75% of breakfast and has been sleeping through lunch. Pt's BG have been elevated -- pt may benefit from diabetic-friendly restrictions. RN stated that pt refused to have CT abd. Skin Integrity Comment: Rodrigo scale: 13; per EMR, L calf w/ rash Current % PO 79% average x6 meals -- fair/good Estimated Energy Expenditure (kcals/day) 4149-7743 kcal/day (30-35 kcal/kg IBW for HD) Estimated Protein Required (g/day) 88-102 gm/day (1.2-1.4 gm/kg IBW for HD) Estimated Fluid Required (l/day) per MD (ARF) Problem/Etiology/Signs/Symptoms Altered nutrition-related labs r/t endocrine and renal dysfunction AEB elevated BG, POC BG, and Cre lab values. *ongoing Increased nutrient needs r/t metabolic demands AEB estimated calories and protein for HD. *ongoing Expected Outcomes/Goals Monitor advancement of diet, appetite and PO intake w/ goal of pt meeting at least 75% of estimated nutritional needs, labs trending WNL, normal GI function, skin integrity/wt maintenance. Dietitian Recommendations * Recommend [place], CCHO diet (Glucerna TID comes standard w/ this diet; provides 660 kcal/day, 30 gm protein/day) Follow Up Moderate Risk; F/U in 3-5 days
--- NOTE | 2019-07-24 15:18 | NUR ---
Dietitian Recommendations * Recommend [place], CCHO diet (Glucerna TID comes standard w/ this diet; provides 660 kcal/day, 30 gm protein/day) LP, RD Please refer to Nutrition F/U for details.
--- NOTE | 2019-07-24 16:02 | NUR ---
I called Tess back re: clinical update given to shelter case manager at [phone]--I asked Barbie RN in ICU if pt she can check with Dr. Zelaya if pt can downgrade to telemetry status
[2019-07-24] MEDS: 0.45% NACL 1,000 ML IV SCH (17:16)
--- NOTE | 2019-07-24 18:00 | NUR ---
PM care done, Pt repositioned for comfort. IVF infusing well.
[2019-07-24] MEDS: INSULIN Lispro 100 UNITS/ML VIAL (humaLOG) SUBCUT SCH (18:17)
--- NOTE | 2019-07-24 19:45 | NUR ---
Initial note Received patient after report from dayshift nurse. Patient awake and unkempt in bed. No gown on, soiled and refusing care. Patient was approached by this nurse and knowing patient is [place], written communication was used. patient agreed to be cleaned and to have gown and linen changed. No signs of distress noted. patient tolerated well. Picc line REX in place and intact. Rea catheter in place and draining to gravity. will continueto monitor patient as per unit protocol.
--- NOTE | 2019-07-24 21:45 | NUR ---
Consult Dr Garcia Called for consultation for Dr Garcia. Spoke to
--- NOTE | 2019-07-24 22:07 | NUR ---
Waiting for ok to transfer patient to telemetry unit from nursing supervisor paste plant. aware.
--- NOTE | 2019-07-24 23:07 | NUR ---
Patient was transferred to Telemetry unit, room 112 A. Full report given to RN using SBAR.
--- NOTE | 2019-07-24 23:08 | NUR ---
Pt arrived from ICU via bed awake and non-verbal. Pt appears confused. No acute distress noted at this time. Skin is warm and dry to touch. No signs or symptoms of hypoglycemia or hyperglycemia noted. RIJ Rustam Catheter noted with the dressing dry and intact. REX PICC, double lumens and saline locked noted with PICC dressing dry and intact. IVF of 1/2NS resumed at 50ml/hr. Rea Cath to gravity noted with yellowish urine. Call light given to pt and bed alarm is on. Bed is in the lowest and locked positions.
--- NOTE | 2019-07-25 01:30 | NUR ---
Pt is awake and resting quietly in bed. TV and room lights were turned off per pt's request. IVf is infusing well via REX PICC. Fall and safety precautions are in place.
[2019-07-25 02:01] VITALS: BP_SYST 158
--- NOTE | 2019-07-25 03:30 | NUR ---
Pt is sleeping without any distress noted. IVF is infusing well via REX PICC. Fall and safety precautions are in place.
[2019-07-25] MEDS: 0.45% NACL 1,000 ML IV SCH ×2 (04:44→18:24)
--- NOTE | 2019-07-25 05:00 | NUR ---
Pt is awake and not in any distress. Fall and safety precautions are in place.
[2019-07-25] MEDS: PIPERACILLIN/TAZO 2.25G/DEX-IS 50 ML IV SCH ×4 (06:18→18:21)
[2019-07-25] MEDS: INSULIN Lispro 100 UNITS/ML VIAL (humaLOG) SUBCUT SCH ×3 (06:22→18:27)
--- NOTE | 2019-07-25 06:30 | NUR ---
Pt is awake and resting comfortably in bed. All pt's needs were attended to. IVF is infusing well via REX PICC. Accucheck 106 this AM and no sliding scale Insulin coverage needed. Pt refused the scheduled Humalog Insulin. Fall and safety precautions are in place. Will endorse to day shift nurse.
[2019-07-25 06:38] LABS: EOSINOPHILS # (AUTO) 0.6 K/uL (0.0-0.4)
[2019-07-25 06:48] LABS: BASOPHILS # (AUTO) 0.1 K/uL (0.0-0.2); BASOPHILS % (AUTO) 0.9 % (0.0-2.0); EOSINOPHILS % (AUTO) 6.1 % (0.0-4.0); HEMATOCRIT 27.4 % (36-54); HEMOGLOBIN 9.4 g/dL (14.0-18.0); LYMPHOCYTES # (AUTO) 2.4 K/uL (1.0-5.5); LYMPHOCYTES % (AUTO) 23.3 % (20.5-51.5); MEAN CORPUSCULAR HEMOGLOBIN 31 pg (27-31); MEAN CORPUSCULAR HGB CONC 34 % (32-36); MEAN CORPUSCULAR VOLUME 89 fL (79.0-98.0); MONOCYTES # (AUTO) 1.3 K/uL (0.0-1.0); MONOCYTES % (AUTO) 12.9 % (1.7-9.3); NEUTROPHILS # (AUTO) 5.8 K/uL (1.8-7.7); NEUTROPHILS % (AUTO) 56.8 % (40.0-70.0); PLATELET COUNT (AUTO) 216 K/uL (130-430); RED BLOOD CELL COUNT(AUTO) 3.09 MIL/uL (4.2-6.2); WHITE BLOOD COUNT (AUTO) 10.3 K/uL (4.8-10.8)
[2019-07-25 06:49] LABS: ALANINE AMINOTRANSFERASE 37 U/L (12-78); ALBUMIN 2.3 g/dL (3.4-4.8); ANION GAP 6 (5-15); ASPARTATE AMINOTRANSFERASE 30 U/L (10-37); CALCIUM 8.3 mg/dL (8.4-11.0); CHLORIDE 108 mmol/L (98-107); GLUCOSE 115 mg/dL (70-99); POTASSIUM 3.8 mmol/L (3.5-5.1); SODIUM SERUM 138 mmol/L (136-145); TOTAL BILIRUBIN 0.3 mg/dL (0.0-1.0); UREA NITROGEN, BLOOD 17 mg/dL (8-21)
[2019-07-25 08:15] VITALS: BP_SYST 165
[2019-07-25] MEDS: PANTOPRAZOLE SODIUM 40 MG/VIAL (PROTONIX) IVP SCH ×2 (09:55→21:06)
[2019-07-25] MEDS: INSULIN GLARGINE 100 UNITS/ML 10 ML VIAL SUBCUT SCH (10:04)
[2019-07-25 12:00] VITALS: BP_SYST 128
--- NOTE | 2019-07-25 12:15 | NUR ---
Routine Patient resting comfortably in bed with Lance suazo at bedside. Checked blood sugar: 147 mg/dl - will cover with scheduled amount of insulin. Patient stable at this time. Addendum: 07/25/19 at 1240 by Leanne Yarbrough RN Covered with scheduled amt of insulin.
--- NOTE | 2019-07-25 17:53 | NUR ---
Routine Checked blood sugar: 163 mg/dl - will cover per scheduled and sliding scale.
[2019-07-25] MEDS: INSULIN LISPRO SLIDING SCALE 100 UNITS/ML VIAL (humaLOG) SUBCUT PRN ×2 (18:28→21:33)
--- NOTE | 2019-07-25 18:30 | NUR ---
Routine Patient resting comfortably and quietly in bed. Covered per sliding scale. Patient stable throughout shift.
--- NOTE | 2019-07-25 19:40 | NUR ---
ROUNDS PATIENT RESTING COMFORTABLY IN BED, VITALS STABLE, DENIES ANY PAIN AND DISCOMFORT AT THIS TIME. ASSESSMENT DONE AND DOCUMENTED. SEE FLOWSHEET. NEEDS ATTENDED TO. CALL LIGHT PLACED WITHIN REACH.
--- NOTE | 2019-07-25 21:16 | NUR ---
MEDICATION DUE MEDICATIONS GIVEN SCHEDULED, TOLERATED WELL. WILL CONTINUE TO MONITOR.
--- NOTE | 2019-07-26 00:13 | NUR ---
PATIENT RESTING: Patient resting quietly. No acute distress noted. Vital signs within normal range.
[2019-07-26] MEDS: PIPERACILLIN/TAZO 2.25G/DEX-IS 50 ML IV SCH ×2 (01:06→05:33)
--- NOTE | 2019-07-26 02:14 | NUR ---
ROUNDS PATIENT ASLEEP, RESPIRATIONS EVEN AND UNLABORED, WILL CONTINUE TO MONITOR.
[2019-07-26] MEDS: INSULIN Lispro 100 UNITS/ML VIAL (humaLOG) SUBCUT SCH ×3 (06:38→18:04)
--- NOTE | 2019-07-26 06:50 | NUR ---
CLOSING NOTES PATIENT AWAKE, WATCHING TV, DENIES ANY PAIN AT THIS TIME. ALL NEEDS ATTENDED TO. SAFETY MEASURES MAINTAINED. CALL LIGHT PLACED WITHIN REACH.
--- NOTE | 2019-07-26 07:45 | NUR ---
Initial note: Patient is awake alert, oriented to name and time, forgetful. He is on 0.45% Normal Saline IVF at 50 ml/hr infusing well via REX PICC line.F/C is in place with clear yellow urine. SCDs are on both legs.
[2019-07-26 07:58] VITALS: BP_SYST 156
[2019-07-26 08:47] LABS: TOTAL IRON BIND. CAPACITY 206 ug/dL (250-450)
[2019-07-26] MEDS: PANTOPRAZOLE SODIUM 40 MG/VIAL (PROTONIX) IVP SCH ×2 (09:08→20:54)
[2019-07-26] MEDS: INSULIN GLARGINE 100 UNITS/ML 10 ML VIAL SUBCUT SCH (09:16)
[2019-07-26] MEDS: INSULIN LISPRO SLIDING SCALE 100 UNITS/ML VIAL (humaLOG) SUBCUT PRN ×2 (12:03→21:06)
[2019-07-26 12:28] VITALS: BP_SYST 159
--- NOTE | 2019-07-26 14:27 | NUR ---
DC Planning: per dr. Araiza, he spoke with Tess Fortune MD for peer to peer and agreed for pt to have CT chest and dr. Gee I met with pt spouse/Ampora and son/Lance at bedside , updated them the POC. Spouse requested pt transfer to [facility] where is close to her home. CM will advise Tess ins once there is discharge order.
--- NOTE | 2019-07-26 15:14 | NUR ---
Social Service Note: A/C TECHNICIAN received referral from [employer]; pt's is asking for pt to be screened for Medi-Edil. A/C TECHNICIAN has sent Doug from [employer] and email requesting him to contact pt's to complete medi-edil screening. A/C TECHNICIAN will follow up as needed.
[2019-07-26 16:59] VITALS: BP_SYST 150
[2019-07-26] MEDS: 0.45% NACL 1,000 ML IV SCH (17:39)
--- NOTE | 2019-07-26 19:00 | NUR ---
CLOSING NOTE: PATIENT IS STABLE, NO SIGN OF DISTRESS, ON 0.45% NS IVF @ 50 ML/HR. F/C IS DRAINING WELL VIA GRAVITY.
--- NOTE | 2019-07-26 19:30 | NUR ---
OPENING NOTE RECEIVED REPORT FROM JEFFREY RN, PATIENT IS RESTING IN BED, A/OX2, REORIENTED PATIENT TO PERSON, PLACE, TIME AND EVENT, PATIENT IS FORGETFUL, EVEN AND UNLABORED BREATHING ON ROOM AIR, RIGHT UPPER ARM PICC IN PLACE AND INFUSING 1/2 NS@50ML/HR, PATENT/BENIGN, KOLB CATHETER DRAINING TO GRAVITY. SAFETY, FALL AND ASPIRATION PRECAUTIONS IN PLACE, BED LOCKED AND IN LOWEST POSITION, BED ALARM ON, THREE SIDE RAILS UP, CALL LIGHT WITH PATIENT, BED CLOSE TO NURSING STATION, WILL CONTINUE TO MONITOR.
[2019-07-26 20:00] VITALS: BP_SYST 152
--- NOTE | 2019-07-26 20:53 | NUR ---
MD ROUNDS DR. FOSS AT BEDSIDE EXAMINING PATIENT. MADE AWARE OF PATIENT'S STATUS, NO NEW ORDERS GIVEN AT THIS TIME.
--- NOTE | 2019-07-26 21:06 | NUR ---
BLOOD SUGAR PATIENT'S BLOOD SUGAR IS 193. 2 UNITS OF LISPRO INSULIN INDICATED PER INSULIN SLIDING SCALE. EDUCATED PATIENT ON MEDICATION USES AND POTENTIAL SIDE EFFECTS, PATIENT UNABLE TO VERBALIZE UNDERSTANDING, PATIENT IS CONFUSED, ADMINISTERED MEDICATION PER MD ORDER, PATIENT TOLERATED WELL. SAFETY AND FALL PRECAUTIONS IN PLACE, CALL LIGHT WITH PATIENT, WILL CONTINUE TO MONITOR.
--- NOTE | 2019-07-27 00:20 | NUR ---
RN ROUNDS PATIENT IS RESTING IN BED, AWAKE AND RESTLESS, REORIENTED PATIENT TO PERSON, PLACE, TIME AND EVENT, PATIENT REFUSED MIDNIGHT VITAL SIGNS FROM VENESSA TSAI AND THIS RN. PATIENT REFUSED DESPITE MULTIPLE ATTEMPTS OF REEDUCATION, TOLERATING ROOM AIR, RIGHT UPPER ARM PICC IN INFUSING WELL, KOLB CATHETER DRAINING TO GRAVITY. SAFETY, FALL AND ASPIRATION PRECAUTIONS IN PLACE, BED LOCKED AND IN LOWEST POSITION, BED ALARM ON, THREE SIDE RAILS UP, CALL LIGHT WITH PATIENT, BED CLOSE TO NURSING STATION, WILL CONTINUE TO MONITOR.
--- NOTE | 2019-07-27 02:06 | NUR ---
RN ROUNDS PATIENT IS CONFUSED AND ATTEMPTING TO GET OUR OF BED, REORIENTED PATIENT TO PERSON, PLACE, TIME AND EVENT. ABLE TO GET PATIENT BACK INTO BED WITH ASSISTANCE FROM CHARGE NURSE MEAGHAN. PATIENT'S RIGHT UPPER ARM PICC INTACT AND INFUSING WELL, KOLB CATHETER DRAINING TO GRAVITY. SAFETY, FALL AND ASPIRATION PRECAUTIONS IN PLACE, BED LOCKED AND IN LOWEST POSITION, BED ALARM ON, THREE SIDE RAILS UP, CALL LIGHT WITH PATIENT, BED CLOSE TO NURSING STATION, WILL CONTINUE TO MONITOR.
--- NOTE | 2019-07-27 04:47 | NUR ---
INCONTINENCE CARE PATIENT VOIDED AND HAD A SMALL BM. INCONTINENCE CARE RENDERED BY THIS LUCY TSAI CNA. PATIENT IS DRY, CLEANED, AND REPOSITIONED. PATIENT TOLERATED WELL, NO SIGNS OF ACUTE DISTRESS. SAFETY AND FALL PRECAUTIONS IN PLACE, CALL LIGHT WITH PATIENT WILL CONTINUE TO MONITOR.
[2019-07-27] MEDS: INSULIN Lispro 100 UNITS/ML VIAL (humaLOG) SUBCUT SCH ×3 (06:14→17:50)
--- NOTE | 2019-07-27 06:15 | NUR ---
BLOOD SUGAR PATIENT'S BLOOD SUGAR IS 120. NO INSULIN INDICATED PER INSULIN SLIDING SCALE. EDUCATED PATIENT ON MEDICATION USES AND POTENTIAL SIDE EFFECTS FOR SCHEDULED HUMALOG INSULIN 2 UNITS, PATIENT UNABLE TO VERBALIZE UNDERSTANDING, PATIENT IS CONFUSED, ADMINISTERED MEDICATION PER MD ORDER, PATIENT TOLERATED WELL. SAFETY AND FALL PRECAUTIONS IN PLACE, CALL LIGHT WITH PATIENT, WILL CONTINUE TO MONITOR.
--- NOTE | 2019-07-27 06:41 | NUR ---
CLOSING NOTE PATIENT IS RESTING IN BED, PATIENT IS FORGETFUL, REORIENTED PATIENT TO PERSON, PLACE, TIME AND EVENT, PATIENT IS FORGETFUL, EVEN AND UNLABORED BREATHING ON ROOM AIR, RIGHT UPPER ARM PICC IN PLACE AND INFUSING 1/2 NS@50ML/HR, PATENT/BENIGN, KOLB CATHETER DRAINING TO GRAVITY. SAFETY, FALL AND ASPIRATION PRECAUTIONS IN PLACE, BED LOCKED AND IN LOWEST POSITION, BED ALARM ON, THREE SIDE RAILS UP, CALL LIGHT WITH PATIENT, BED CLOSE TO NURSING STATION, WILL ENDORSE CARE TO DAYSHIFT RN.
[2019-07-27] MEDS ORDERED: hydrALAZINE HCL 10 MG TABLET PO ONE (08:00)
[2019-07-27 08:06] VITALS: BP_SYST 170
[2019-07-27] MEDS: PANTOPRAZOLE SODIUM 40 MG/VIAL (PROTONIX) IVP SCH ×2 (09:30→21:39)
[2019-07-27] MEDS: INSULIN GLARGINE 100 UNITS/ML 10 ML VIAL SUBCUT SCH (09:33)
[2019-07-27 10:27] LABS: FOLATE (FOLIC ACID) 8.4 ng/mL (>3.0)
[2019-07-27 11:14] LABS: CEA 2.1 ng/mL (0.0-4.7)
[2019-07-27 12:15] VITALS: BP_SYST 155
--- NOTE | 2019-07-27 13:16 | NUR ---
Scheduled 2 units of Humalog given per order. Per family, no additional sliding scale Humalog to be given for GLU of 171.
[2019-07-27] MEDS: hydrALAZINE HCL 10 MG TABLET PO SCH ×2 (14:17→21:42)
[2019-07-27] MEDS: 0.45% NACL 1,000 ML IV SCH (14:24)
[2019-07-27 17:12] VITALS: BP_SYST 131
--- NOTE | 2019-07-27 19:33 | NUR ---
Patient currently in bed resting with no acute distress noted. Patient is alert but very confused and disoriented, family at bedside. Patient has no reports of pain or discomfort at this time. Call light and bedside table within reach, bed in locked and low position with alarm set for patient safety. NOC notified that patient can be aggressive both verbally and physically. Report given and care endorsed to KIMBERLY Pathak.
[2019-07-27 20:00] VITALS: BP_SYST 143
--- NOTE | 2019-07-27 22:17 | NUR ---
Patient in bed. Turned repositioned q2. No acute distress noted. Will continue to monitor.
[2019-07-28 00:07] VITALS: BP_SYST 164
[2019-07-28] MEDS: hydrALAZINE HCL 10 MG TABLET PO SCH ×3 (05:06→21:05)
[2019-07-28] MEDS: INSULIN Lispro 100 UNITS/ML VIAL (humaLOG) SUBCUT SCH ×3 (05:09→17:05)
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
[2019-07-28 06:42] LABS: ALANINE AMINOTRANSFERASE 33 U/L (12-78); ALBUMIN 2.2 g/dL (3.4-4.8); ANION GAP 5 (5-15); ASPARTATE AMINOTRANSFERASE 22 U/L (10-37); CALCIUM 8.5 mg/dL (8.4-11.0); CHLORIDE 106 mmol/L (98-107); CREATININE 1.33 mg/dL (0.55-1.30); GLUCOSE 111 mg/dL (70-99); POTASSIUM 3.9 mmol/L (3.5-5.1); SODIUM SERUM 138 mmol/L (136-145); TOTAL BILIRUBIN 0.2 mg/dL (0.0-1.0); UREA NITROGEN, BLOOD 13 mg/dL (8-21)
[2019-07-28 06:54] LABS: BASOPHILS # (AUTO) 0.1 K/uL (0.0-0.2); BASOPHILS % (AUTO) 0.9 % (0.0-2.0); EOSINOPHILS # (AUTO) 0.3 K/uL (0.0-0.4); EOSINOPHILS % (AUTO) 3.5 % (0.0-4.0); HEMATOCRIT 27.3 % (36-54); HEMOGLOBIN 9.3 g/dL (14.0-18.0); LYMPHOCYTES # (AUTO) 2.6 K/uL (1.0-5.5); LYMPHOCYTES % (AUTO) 29.5 % (20.5-51.5); MEAN CORPUSCULAR HEMOGLOBIN 30 pg (27-31); MEAN CORPUSCULAR HGB CONC 34 % (32-36); MEAN CORPUSCULAR VOLUME 88 fL (79.0-98.0); MONOCYTES # (AUTO) 1.1 K/uL (0.0-1.0); MONOCYTES % (AUTO) 12.3 % (1.7-9.3); NEUTROPHILS # (AUTO) 4.7 K/uL (1.8-7.7); NEUTROPHILS % (AUTO) 53.8 % (40.0-70.0); PLATELET COUNT (AUTO) 294 K/uL (130-430); RED BLOOD CELL COUNT(AUTO) 3.09 MIL/uL (4.2-6.2); RED CELL DISTRIBUTION WIDTH 14.7 % (9.0-15.0); WHITE BLOOD COUNT (AUTO) 8.7 K/uL (4.8-10.8)
[2019-07-28 08:00] VITALS: BP_SYST 155
[2019-07-28] MEDS: PANTOPRAZOLE SODIUM 40 MG/VIAL (PROTONIX) IVP SCH ×2 (09:29→21:03)
[2019-07-28] MEDS: INSULIN GLARGINE 100 UNITS/ML 10 ML VIAL SUBCUT SCH (09:34)
--- NOTE | 2019-07-28 10:08 | NUR ---
Per GI MD called CT to see why pt CT of chest w/contrast and CT of abdomen and pelvis w/contrast not done. Order was placed 07/24/19 around 0900. No answer at CT, will continue to try to reach.
--- NOTE | 2019-07-28 11:11 | NUR ---
Able to reach CT at this time. Per CT patient refused testing. Will follow up with pt and family, if agreeable at this time will obtain consent from family. Will follow up with GI MD.
[2019-07-28] MEDS: INSULIN LISPRO SLIDING SCALE 100 UNITS/ML VIAL (humaLOG) SUBCUT PRN ×2 (12:05→21:11)
[2019-07-28 12:18] VITALS: BP_SYST 134
[2019-07-28] MEDS: 0.45% NACL 1,000 ML IV SCH (13:27)
[2019-07-28 16:15] VITALS: BP_SYST 156
--- NOTE | 2019-07-28 18:41 | NUR ---
Patient in bed resting with no acute distress noted. Patient continues to be very confused. However, patient not as aggressive verbally or physically as he was yesterday. Patient able to make needs knows and communicates no needs at this time. Patient again refused CT scans, MD aware. Call light and bedside table within reach, bed wheels locked, bed in low position and bed alarm set for patient safety. Will continue to monitor until care is endorsed to NOC shift.
[2019-07-28 20:00] VITALS: BP_SYST 179
--- NOTE | 2019-07-28 23:23 | NUR ---
PATIENT CALM AND COOPERATIVE. NO ACUTE DISTRESS NOTED. COMPLIANT WITH ALL MEDICATION. WILL CONTINUE TO MONITOR.
[2019-07-29] MEDS: 0.45% NACL 1,000 ML IV SCH (04:45)
[2019-07-29] MEDS: hydrALAZINE HCL 10 MG TABLET PO SCH ×3 (05:24→21:24)
[2019-07-29] MEDS: INSULIN Lispro 100 UNITS/ML VIAL (humaLOG) SUBCUT SCH ×3 (06:16→16:58)
[2019-07-29] MEDS: INSULIN LISPRO SLIDING SCALE 100 UNITS/ML VIAL (humaLOG) SUBCUT PRN ×4 (06:17→21:31)
[2019-07-29 07:20] LABS: BASOPHILS # (AUTO) 0.1 K/uL (0.0-0.2); BASOPHILS % (AUTO) 0.7 % (0.0-2.0); EOSINOPHILS # (AUTO) 0.3 K/uL (0.0-0.4); EOSINOPHILS % (AUTO) 3.4 % (0.0-4.0); HEMATOCRIT 28.2 % (36-54); HEMOGLOBIN 9.6 g/dL (14.0-18.0); LYMPHOCYTES # (AUTO) 2.6 K/uL (1.0-5.5); MEAN CORPUSCULAR HEMOGLOBIN 30 pg (27-31); MEAN CORPUSCULAR HGB CONC 34 % (32-36); MEAN CORPUSCULAR VOLUME 89 fL (79.0-98.0); MONOCYTES # (AUTO) 1.2 K/uL (0.0-1.0); MONOCYTES % (AUTO) 13.1 % (1.7-9.3); NEUTROPHILS % (AUTO) 54.8 % (40.0-70.0); PLATELET COUNT (AUTO) 339 K/uL (130-430); RED BLOOD CELL COUNT(AUTO) 3.18 MIL/uL (4.2-6.2); WHITE BLOOD COUNT (AUTO) 9.1 K/uL (4.8-10.8)
[2019-07-29 07:26] LABS: ANION GAP 5 (5-15); CALCIUM 8.3 mg/dL (8.4-11.0); CHLORIDE 107 mmol/L (98-107); CREATININE 1.34 mg/dL (0.55-1.30); GLUCOSE 116 mg/dL (70-99); SODIUM SERUM 139 mmol/L (136-145); UREA NITROGEN, BLOOD 16 mg/dL (8-21)
--- NOTE | 2019-07-29 07:40 | NUR ---
INITIAL ROUNDS Patient awake, sitting in bed. No sign of pain or shortness of breath. Feeds self. Explained need for CT scan, patient agreed. Relative made aware. Safety precautions in place. Will monitor.
[2019-07-29 08:00] VITALS: BP_SYST 127
[2019-07-29] MEDS: PANTOPRAZOLE SODIUM 40 MG/VIAL (PROTONIX) IVP SCH ×2 (08:27→21:21)
[2019-07-29] MEDS: INSULIN GLARGINE 100 UNITS/ML 10 ML VIAL SUBCUT SCH (08:30)
[2019-07-29] MEDS ORDERED: DIATR MEGLU/DIATRIZ SOD 30 ML SOLUTION PO ONE (09:40)
[2019-07-29] MEDS ORDERED: IOHEXOL 100 ML IV ONE (09:41)
--- NOTE | 2019-07-29 10:00 | NUR ---
Notes- Resting in bed, at bedside. No distress noted. ivf infusing well. Agreed to do CT scan. Drinking oral contrast at this time.
[2019-07-29 12:37] VITALS: BP_SYST 148
--- NOTE | 2019-07-29 12:40 | NUR ---
Pt went to [facility] accompanied by at this time. No distress noted.
--- NOTE | 2019-07-29 15:15 | NUR ---
Notes- Resting in bed, no acute distress noted. repositioned. family at bedside.
[2019-07-29 16:45] VITALS: BP_SYST 140
--- NOTE | 2019-07-29 18:52 | NUR ---
CLOSING NOTES Patient prefers to sleep at this time. Will eat later. No distress noted. IVF infusing well. Will endorse.
--- NOTE | 2019-07-29 19:30 | NUR ---
OPENING NOTES Patient is resting, eyes closed, no signs of acute respiratory distress observed. Tray is at bedside, IVF running, dressings c/d/i. Was endorsed that patient communicates with white board. SCDs on, call light within reach, bed alarm on, bed at lowest position. Will continue to monitor. Addendum: 07/30/19 at 0429 by Eboni Salazar RN Rea catheter intact, draining by gravity, no kinks, no loops, clear yellow urine noted.
--- NOTE | 2019-07-29 20:30 | NUR ---
Patient is eating, HOB elevated. Safety precautions in place. Will continue to monitor.
--- NOTE | 2019-07-29 21:45 | NUR ---
ONCOLOGY CONSULT REASON FOR CONSULTATION:GASTRIC CA WAS CONSULT CALLED?Y PERSON WHO WAS NOTIFIED:KOFI CONSULTING PHYSICIAN:THEA MARTELL BATTERY PARTS ASSEMBLER SPECIALTY:HEMATOLOGY/SHARE DAIRY FARMER PHONE NUMBER:[phone] REQUESTING PHYSICIAN:DOMINIK MCKENZIE
--- NOTE | 2019-07-30 00:10 | NUR ---
Patient is resting, no signs of acute respiratory distress observed. Safety precautions in place. Will continue to monitor.
[2019-07-30 01:58] VITALS: BP_SYST 155
--- NOTE | 2019-07-30 02:11 | NUR ---
Patient is resting, eyes closed. Rise and fall of chest observed. will continue to monitor.
--- NOTE | 2019-07-30 04:20 | NUR ---
Patient is resting, eyes open, yells that he did not receive lunch and is confused what time it is. Used the white board to tell patient that it is 4AM. Patient understands and turning was done, patient is comfortable. Will continue to monitor.
[2019-07-30] MEDS: 0.45% NACL 1,000 ML IV SCH (06:08)
[2019-07-30] MEDS: hydrALAZINE HCL 10 MG TABLET PO SCH ×3 (06:13→22:25)
[2019-07-30] MEDS: INSULIN Lispro 100 UNITS/ML VIAL (humaLOG) SUBCUT SCH ×3 (06:25→17:42)
--- NOTE | 2019-07-30 07:01 | NUR ---
CLOSING NOTES Patient is resting, eyes closed, no signs of acute respiratory distress observed. IVF running, dressings c/d/i. Used gestures or white board throughout shift. SCDs on, call light within reach, bed alarm on, bed at lowest position. All needs met throughout shift. Will endorse care to oncoming shift.
--- NOTE | 2019-07-30 07:45 | NUR ---
opening notes, received pt in bed, pt is aaox1, denies pain, no sob, no fever. vitals wnl. pt is very [place], communicate with a writing board. safety precaution in place. call light in reach. bed in low position. encouraged to call for assist and pain meds. will cont to monitor.
[2019-07-30] MEDS: INSULIN GLARGINE 100 UNITS/ML 10 ML VIAL SUBCUT SCH (08:52)
[2019-07-30] MEDS: PANTOPRAZOLE SODIUM 40 MG/VIAL (PROTONIX) IVP SCH ×2 (08:53→22:25)
[2019-07-30 09:00] VITALS: BP_SYST 142
--- NOTE | 2019-07-30 09:00 | NUR ---
am meds given, pt assisted by son for breakfast, son stated that they are not doing chemo or any surgery, stated he spoke with dr greenberg last night. dr beard was here but he said he will defer seeing the pt bec. pt is being seen by dr lucas.
--- NOTE | 2019-07-30 10:00 | NUR ---
pt resting in bed, pt's son at bedside. will cont to monitor.
--- NOTE | 2019-07-30 11:50 | NUR ---
bs = 129, pt son at bed side, pt awaken.
[2019-07-30 12:10] VITALS: BP_SYST 156
--- NOTE | 2019-07-30 14:22 | NUR ---
pt in bed, resting, initially refused blood pressure pill but took it after several attemtps.
--- NOTE | 2019-07-30 19:33 | NUR ---
OPENING NOTES Patient is resting, no signs of acute respiratory distress observed, eyes closed. IVF running, dressings c/d/i. Patient is resting and does not want the food tray in front but has had eaten dinner already. White board by patient with white board marker. Rea catheter in tact, draining by gravity, no kinks, no loops, clear yellow urine. Patient unable to use call light, call light within reach, rounds to be performed. Bed at lowest position. Will continue to monitor.
[2019-07-30 20:00] VITALS: BP_SYST 153
--- NOTE | 2019-07-30 20:03 | NUR ---
CLOSING NOTES; PT HAS BEEN STABLE, NO FEVER THE WHOLE SHIFT. NO S/S OF PAIN. ALL MEDS OFFERED AND TAKEN. ENDORSED TO NIGHT NURSE REECE.
--- NOTE | 2019-07-30 21:11 | NUR ---
Patient has used the call light, but did not verbalize anything to the road roller operator hot mix. Patient had wanted a sip of water, water provided. Patient tolerated well. Will continue to monitor.
[2019-07-30] MEDS: INSULIN LISPRO SLIDING SCALE 100 UNITS/ML VIAL (humaLOG) SUBCUT PRN (22:32)
--- NOTE | 2019-07-30 22:50 | NUR ---
Patient has turned to the side, side connell. No signs of distress observed. Will continue to monitor.
[2019-07-31] VITALS: BP_SYST 162
--- NOTE | 2019-07-31 00:05 | NUR ---
Patient is sleeping, eyes closed. Rise and fall of chest observed. With gestures, patient does not need a sip of water at this time. Lights have been turned off. Call light within reach, bed alarm on, will continue to monitor.
--- NOTE | 2019-07-31 00:35 | NUR ---
Patient's BP is 150/72, Apresoline PRN 10mg IVP was not provided to patient, as SBP was under the parameter of SBP 160. Will continue to monitor.
[2019-07-31] MEDS: 0.45% NACL 1,000 ML IV SCH ×2 (02:11→22:09)
--- NOTE | 2019-07-31 02:22 | NUR ---
Patient is resting, no signs of distress observed. IVF running, will continue to monitor.
--- NOTE | 2019-07-31 04:30 | NUR ---
SBP WNL, patient is resting, no signs of acute respiratory distress observed. Will continue to monitor.
[2019-07-31] MEDS: INSULIN Lispro 100 UNITS/ML VIAL (humaLOG) SUBCUT SCH ×3 (06:40→17:30)
[2019-07-31] MEDS: hydrALAZINE HCL 10 MG TABLET PO SCH ×3 (06:41→21:52)
--- NOTE | 2019-07-31 06:58 | NUR ---
CLOSING NOTES Patient is resting, no signs of acute respiratory distress observed, eyes closed. IVF running, dressings c/d/i. Blood sugar is 105, 2units provided, apple juice provided and will endorse to morning shift. White board by patient with white board marker. Rea catheter in tact, draining by gravity, no kinks, no loops, clear yellow urine. Patient unable to use call light, call light within reach, rounds to be performed. Bed at lowest position. All needs met throughout shift. Will endorse care to oncoming shift.
[2019-07-31 07:17] LABS: BASOPHILS # (AUTO) 0.1 K/uL (0.0-0.2); BASOPHILS % (AUTO) 0.7 % (0.0-2.0); EOSINOPHILS # (AUTO) 0.3 K/uL (0.0-0.4); EOSINOPHILS % (AUTO) 3.4 % (0.0-4.0); HEMATOCRIT 28.7 % (36-54); HEMOGLOBIN 9.8 g/dL (14.0-18.0); LYMPHOCYTES # (AUTO) 3.2 K/uL (1.0-5.5); LYMPHOCYTES % (AUTO) 35.8 % (20.5-51.5); MEAN CORPUSCULAR HEMOGLOBIN 30 pg (27-31); MEAN CORPUSCULAR HGB CONC 34 % (32-36); MEAN CORPUSCULAR VOLUME 88 fL (79.0-98.0); MONOCYTES # (AUTO) 0.9 K/uL (0.0-1.0); MONOCYTES % (AUTO) 10.1 % (1.7-9.3); NEUTROPHILS # (AUTO) 4.4 K/uL (1.8-7.7); PLATELET COUNT (AUTO) 391 K/uL (130-430); RED BLOOD CELL COUNT(AUTO) 3.26 MIL/uL (4.2-6.2); RED CELL DISTRIBUTION WIDTH 15.2 % (9.0-15.0); WHITE BLOOD COUNT (AUTO) 8.8 K/uL (4.8-10.8)
[2019-07-31 07:32] LABS: ALANINE AMINOTRANSFERASE 31 U/L (12-78); ALBUMIN 2.4 g/dL (3.4-4.8); ANION GAP 7 (5-15); ASPARTATE AMINOTRANSFERASE 18 U/L (10-37); CALCIUM 8.6 mg/dL (8.4-11.0); CHLORIDE 102 mmol/L (98-107); CREATININE 1.38 mg/dL (0.55-1.30); GLUCOSE 106 mg/dL (70-99); POTASSIUM 3.8 mmol/L (3.5-5.1); SODIUM SERUM 134 mmol/L (136-145); TOTAL BILIRUBIN 0.2 mg/dL (0.0-1.0); UREA NITROGEN, BLOOD 21 mg/dL (8-21)
--- NOTE | 2019-07-31 07:45 | NUR ---
Opening notes, received pt in bed, pt is aaox1, denies pain, no sob, no fever. vitals wnl. pt is very [place], writing board within reach. safety precaution in place. call light in reach. bed in low position. encouraged to call for assist and pain meds. will cont to monitor.
[2019-07-31 07:58] VITALS: BP_SYST 137
[2019-07-31] MEDS: INSULIN GLARGINE 100 UNITS/ML 10 ML VIAL SUBCUT SCH (08:35)
[2019-07-31] MEDS: PANTOPRAZOLE SODIUM 40 MG/VIAL (PROTONIX) IVP SCH ×2 (08:36→21:47)
--- NOTE | 2019-07-31 10:20 | NUR ---
Transfer to [facility] order for [facility] : Informed LACIE/ Tess showcase maker at [phone] for the transfer request. Lacie will conduct peer to peer and will call back with md's decision.
[2019-07-31] MEDS: INSULIN LISPRO SLIDING SCALE 100 UNITS/ML VIAL (humaLOG) SUBCUT PRN ×3 (12:13→21:57)
[2019-07-31 15:12] VITALS: BP_SYST 136
--- NOTE | 2019-07-31 19:30 | NUR ---
OPENING NOTE Received patient resting in bed, awake, sitting in high fowlers and finishing his dinner. No s/sx of distress. Nonlabored breathing on room air. IVF infusing via PIIC to REX. Bed is locked in lowest position, side rails up 3x, and bed alarm on. He is resting on LOL mattress. Rea catheter bag is draining to gravity.
--- NOTE | 2019-07-31 19:38 | NUR ---
CLOSING NOTES: PT ENDORSED TO NIGHT NURSE, PT ON STABLE CONDITION.
[2019-07-31 20:00] VITALS: BP_SYST 149
--- NOTE | 2019-07-31 21:55 | NUR ---
Medications / fingerstic glucose Due medications given and patient is [place], though he did take PO med and was cooperative. Fingerstick BGT done w/ result of 184 mg/dL and 2 units of Humalog given per sliding scale order.
[2019-08-01] MEDS: TEMAZEPAM 15 MG CAPSULE PO PRN (00:59)
[2019-08-01] MEDS: hydrALAZINE HCL 20 MG/ML VIAL IVP PRN ×2 (00:59→21:26)
--- NOTE | 2019-08-01 01:02 | NUR ---
elevated B/P B/P was 173/82, HR 64; administered Apresoline 10mg IVP as ordered. Will continue to monitor.
[2019-08-01 01:22] VITALS: BP_SYST 174
--- NOTE | 2019-08-01 02:33 | NUR ---
Resting Patient is resting w/ eyes closed, nonlabored breathing, no SOB noted. IVF infusing well. Safety precautions in place and call light w/in reach. Will continue to monitor.
--- NOTE | 2019-08-01 04:25 | NUR ---
RN rounds Patient is resting w/ eyes closed. Symmetrical rise and fall of chest, nonlabored breathing. IVF infusing well, safety precautions in place and call light w/in reach.
[2019-08-01] MEDS: hydrALAZINE HCL 10 MG TABLET PO SCH ×3 (06:17→20:24)
[2019-08-01] MEDS: INSULIN Lispro 100 UNITS/ML VIAL (humaLOG) SUBCUT SCH ×3 (06:23→17:16)
--- NOTE | 2019-08-01 07:36 | NUR ---
RN OPENING NOTE REPORT WAS ENDORSED BY NIGHT NURSE AT BED SIDE. PATIENT IS AWAKE AND ALERT SITTING UP IN BED. PATIENT HAS NO COMPLAINTS AT THIS TIME. PATIENT SHOWS NO SIGNS OF ANY DISTRESS. EDUCATED UNLEAVENED DOUGH MIXER LIGHT BUT PATIENT IS CONFUSED AND UNABLE TO ACKNOWLEDGE. PATIENT IS CLOSE TO NURSES STATION. PATIENT HAS ALL SAFETY PRECAUTIONS IN PLACE. PATIENT HAS NO OTHER NEEDS AT THIS TIME.
[2019-08-01 07:50] VITALS: BP_SYST 149
[2019-08-01] MEDS: PANTOPRAZOLE SODIUM 40 MG/VIAL (PROTONIX) IVP SCH ×2 (08:43→20:21)
[2019-08-01] MEDS: INSULIN GLARGINE 100 UNITS/ML 10 ML VIAL SUBCUT SCH (08:49)
--- NOTE | 2019-08-01 08:51 | NUR ---
medication patients scheduled medication given per order. patient is awake and alert sitting up in bed. patient finished eating breakfast. patient educated community education coordinator light for assistance. call light is with patient. patient nods head to verbalize understanding. patient is close to nurses station. no signs of any distress. will continue to monitor.
--- NOTE | 2019-08-01 11:59 | NUR ---
accu check patients accu check done as order, no coverage needed. patient scheduled insulin given. patient is awake and alert sitting up in bed. no signs of any distress, breathing is equal and non labored. educated business communications instructor light for assistance. call light is with him. patient is close to nurses station. lunch provided to patient. no other needs at this time.
[2019-08-01 12:08] VITALS: BP_SYST 149
--- NOTE | 2019-08-01 13:21 | NUR ---
medication patients scheduled medication given per order. patient is sitting up in bed, trying to rest. no signs of any distress, breathing is equal and non labored. patient has call light with him educated to use for assistance. patient has all safety precautions in place no other needs at this time.
--- NOTE | 2019-08-01 13:57 | NUR ---
DC PLANNING [facility] [phone], that [facility] authorized as outpt. Called & spoke w Mona, states Shahlaanthony is CM today but not avail, will inform to call me. States that Md to Md was done w their MD Dr Still & w Dr Zelaya, & decided on outpt [facility]. Later in afternoon spoke w Dr Zelaya & states spoke w MD @ insurance plan for SNF & outpt [facility]. I called & spoke w Juice @ [facility], verified Outpt [facility] authorized, she will work on SNF, will try [facility] per family preference. Will call back with SNF & ambulance auth. Addendum: 08/01/19 at 1546 by Aurora Mendoza RN Called Tess, still working on trying to get a bed, will call once snf bed found.
--- NOTE | 2019-08-01 15:00 | NUR ---
rn rounding patient appears to be resting with both eyes closed no signs of any distress, breathing is equal and non labored. all safety precautions in place. patient is close to nurses station. will continue to monitor.
[2019-08-01 16:39] VITALS: BP_SYST 144
[2019-08-01] MEDS: 0.45% NACL 1,000 ML IV SCH (17:10)
--- NOTE | 2019-08-01 17:12 | NUR ---
Nutrition F/U RD reviewed pt's current EMR record including diet Hx, physician notes, nursing notes, pertinent labs/meds/procedures, care trends, and care activity. Admission Dx: Dx: Upper GI bleed Dx: Upper GI Bleed, Severe Anemia, ARF, Dehydration, Severe Hyperglycemia, H/O HTN. PMH: DM, HTN, BPH per physician notes. 07/20: S/P HD cath placement. Current Diet Order/Nutrition Support: Soft (low fiber/bland) x6 days Subjective Info: Per EMR, PO intake records have improved -- pt is likely meeting nutritional needs. Pt would benefit from diabetic-friendly diet to better control BG levels. Skin Integrity Comment: Rodrigo scale: 19; no skin issues noted Current % PO 79% average x6 meals -- fair/good Estimated Energy Expenditure (kcals/day) 1255-1680 kcal/day (30-35 kcal/kg IBW for HD) Estimated Protein Required (g/day) 88-102 gm/day (1.2-1.4 gm/kg IBW for HD) Estimated Fluid Required (l/day) per MD (ARF) Problem/Etiology/Signs/Symptoms Altered nutrition-related labs r/t endocrine and renal dysfunction AEB elevated BG, POC BG, and Cre lab values. *ongoing Increased nutrient needs r/t metabolic demands AEB estimated calories and protein for HD. *ongoing Expected Outcomes/Goals Monitor advancement of diet, appetite and PO intake w/ goal of pt meeting at least 75% of estimated nutritional needs, labs trending WNL, normal GI function, skin integrity/wt maintenance. Dietitian Recommendations * Recommend soft (low fiber/bland), [facility] standard carb-60 gm diet Follow Up Low Risk; F/U in 7 days
--- NOTE | 2019-08-01 17:15 | NUR ---
Dietitian Recommendations * Recommend soft (low fiber/bland), [facility] standard carb-60 gm diet LP, RD Please refer to Nutrition F/U for details.
--- NOTE | 2019-08-01 17:15 | NUR ---
Accu check/iv fluid patients new iv fluid bag given. patient Accu check also done coverage was given as ordered. patient shows no signs of any distress,family is at bed side. awaiting placement for SNF. family and patient are aware. patient provided with dinner. patient has all safety precautions in place. call light is with him educated to use for assistance, no other needs at this time.
[2019-08-01] MEDS: INSULIN LISPRO SLIDING SCALE 100 UNITS/ML VIAL (humaLOG) SUBCUT PRN ×2 (17:19→20:23)
--- NOTE | 2019-08-01 18:50 | NUR ---
[facility] mgr at [phone] YAMINI SPOKE WITH HER AND SHE SAID THE ONLY PLACE THAT WAS A POSS. IS [facility] THEY SAID THEY WILL HAVE TO REVIEW IT. SHE WILL CALL THEM BACK AND GET BACK TO US IF THERE IS A BED AVAIL.
--- NOTE | 2019-08-01 19:15 | NUR ---
OPENING NOTE Bedside report received from dayshift nurse. Patient received lying in bed, resting, eyes closed, appears to be asleep. No s/s of acute distress noted. Breathing is even and unlabored. HOB raised. IVF infusing well. IV site patent, no signs of infiltration or infection noted. Rea attached, secured, and draining by gravity. Call light with patient. Bed alarm on. Will continue to monitor.
--- NOTE | 2019-08-01 19:32 | NUR ---
rn closing note report endorsed to night nurse. patient is awake and alert sitting up in bed all safety precautions in place. no other needs at this time.
--- NOTE | 2019-08-01 20:35 | NUR ---
CALLED POC Called Jaimee, patient's daughter, no answer, voice mail left. Will try again.
--- NOTE | 2019-08-01 20:40 | NUR ---
CONSENT FOR TRANSFER Spoke with Lance Radford, he gave consent for discharge to [facility], informed that patient is going to [address] bed [address], possible grain picker time will be in 2 hours. Witnessed by KIMBERLY Mondragon. All questions and concerned addressed at this time.
[2019-08-01 21:42] VITALS: BP_SYST 142
--- NOTE | 2019-08-01 22:37 | NUR ---
DC PICC/DISCHARGED Report given to EMT of [facility]. PICC line removed at this time, catheter fully intact, no active bleeding noted. No s/s of acute distress noted. Breathing even and unlabored. ID bands removed. Rea attached, secured and draining by gravity. Skin warm and dry to touch. Vitals stable. Report has been given to KIMBERLY Alston at [facility]. Patient escorted out of unit via gurney. All needs met. All personal belongings with patient.
== END 2019-08-01 22:37 | DRG 374 ==
LOC: SED 04:14 → SIC 07:55 → STU 07-24 23:12
PROVIDERS: ADMIT Family Medicine; ATTEND Family Medicine
PROC: 30233R1 Transfusion of Nonautologous Platelets into Peripheral Vein, Percutaneous Approach (ICD-10-PCS; 2019-07-19)
PROC: 30233N1 Transfusion of Nonautologous Red Blood Cells into Peripheral Vein, Percutaneous Approach (ICD-10-PCS; 2019-07-19)
PROC: 0DC58ZZ Extirpation of Matter from Esophagus, Via Natural or Artificial Opening Endoscopic (ICD-10-PCS; principal; 2019-07-19 16:00)
PROC: 02HV33Z Insertion of Infusion Device into Superior Vena Cava, Percutaneous Approach (ICD-10-PCS; 2019-07-20)
PROC: B548ZZA Ultrasonography of Superior Vena Cava, Guidance (ICD-10-PCS; 2019-07-20)
PROC: 0DB68ZX Excision of Stomach, Via Natural or Artificial Opening Endoscopic, Diagnostic (ICD-10-PCS; 2019-07-20)
PROC: 0W3P8ZZ Control Bleeding in Gastrointestinal Tract, Via Natural or Artificial Opening Endoscopic (ICD-10-PCS; 2019-07-20)
PROC: 5A1D70Z Performance of Urinary Filtration, Intermittent, Less than 6 Hours Per Day (ICD-10-PCS; 2019-07-20)
DX: C16.9 Malignant neoplasm of stomach, unspecified (principal); E11.00 Type 2 diabetes mellitus with hyperosmolarity without nonketotic hyperglycemic-hyperosmolar coma (NKHHC); N17.0 Acute kidney failure with tubular necrosis; E11.10 Type 2 diabetes mellitus with ketoacidosis without coma; I69.354 Hemiplegia and hemiparesis following cerebral infarction affecting left non-dominant side; G93.49 Other encephalopathy; D62 Acute posthemorrhagic anemia; E86.0 Dehydration; K25.9 Gastric ulcer, unspecified as acute or chronic, without hemorrhage or perforation; I10 Essential (primary) hypertension; E87.5 Hyperkalemia; N40.0 Benign prostatic hyperplasia without lower urinary tract symptoms; E11.51 Type 2 diabetes mellitus with diabetic peripheral angiopathy without gangrene; E66.01 Morbid (severe) obesity due to excess calories; K44.9 Diaphragmatic hernia without obstruction or gangrene; K31.7 Polyp of stomach and duodenum; K22.70 Barrett's esophagus without dysplasia; K20.9 Esophagitis, unspecified; H91.90 Unspecified hearing loss, unspecified ear; E78.5 Hyperlipidemia, unspecified; Z68.30 Body mass index [BMI] 30.0-30.9, adult; Z79.4 Long term (current) use of insulin; Z79.899 Other long term (current) drug therapy; Z89.431 Acquired absence of right foot
CPT/HCPCS: 36415; 36600; 43235; 43239; 71045; 71260-TC; 76700-TC; 80048; 80053; 80185-TC; 81000-TC; 82009-TC; 82378; 82550-TC; 82607; 82728; 82746; 82803-TC; 82962; 83036; 83540-TC; 83550-TC; 83735-TC; 84100-TC; 84443-TC; 84484; 85018-TC; 85025; 85610-TC; 86886; 86900; 86901; 86920; 87040-TC; 87081; 88305; 88312; 88313; 90935; 93005; 96365; 96366; 96367; 99291; C1751; C9113; G0378; J0171; J0360; J0610; J1165; J1644; J1815; J2060; J2250; J2405; J2543; J2765; J3010; J3480; J7030; J7050; P9021; P9034; Q9964; Q9967

== ENCOUNTER 2020-12-04 18:13 | Emergency (ER) | payer BC, OTHER ==
[~2020-12-04] VITALS: Ht 180.3 cm; Wt 102.1 kg
[~2020-12-04 18:13] MED LIST: DUTA0.5C PO; FERR-69 PO; TAMS-11 PO
[2020-12-04 18:30] VITALS: BP_SYST 160
[2020-12-04] MEDS ORDERED: DIPH-TET-PERTUS Vaccine 0.5 ML VIAL (ADACEL) I.M. ONE (20:30)
[2020-12-04] MEDS ORDERED: LIDOCAINE 1%, 20 ML MDV 20 ML ONE (20:34)
[2020-12-04] MEDS ORDERED: BACITRACIN 1 GM OINT TP ONE ×2 (22:53→23:00)
[2020-12-04] MEDS ORDERED: CEPH250C PO (22:55)
[2020-12-04] MEDS ORDERED: cephALEXin 500 MG CAPSULE PO ONE (23:00)
[2020-12-04 23:11] VITALS: BP_SYST 112
== END 2020-12-04 23:09 | disposition home or self-care (01) ==
LOC: SED 18:13
DX: S31.21XA Laceration without foreign body of penis, initial encounter (principal); E11.9 Type 2 diabetes mellitus without complications; Z79.899 Other long term (current) drug therapy; W18.39XA Other fall on same level, initial encounter; Y93.89 Activity, other specified; Y92.89 Other specified places as the place of occurrence of the external cause; Y99.8 Other external cause status
CPT/HCPCS: 12042; 90471; 90715; 99284; J2001

== ENCOUNTER 2020-12-06 21:32 | Emergency (ER) | payer BC, OTHER ==
[~2020-12-06] VITALS: Ht 180.3 cm; Wt 99.8 kg
[~2020-12-06 21:32] MED LIST changes: +CEPH250C PO
--- NOTE | 2020-12-06 21:47 | NUR ---
Patient to ER bed 3 to gown for evaluation. Side rails up. Report given to Megan.
[2020-12-06 21:48] VITALS: BP_SYST 130
--- NOTE | 2020-12-06 21:50 | NUR ---
Pt came into ER for a wound check from sutures put in the shaft of the penis monday. Pt resting in rney no distress noted.
--- NOTE | 2020-12-06 22:49 | NUR ---
ER at bedside examining patient.
[2020-12-06] MEDS ORDERED: BACITRACIN 1 GM OINT TP ONE ×2 (22:58→23:00)
[2020-12-06 23:01] VITALS: BP_SYST 130
--- NOTE | 2020-12-06 23:01 | NUR ---
Patient given written and verbal discharge instructions and verbalizes understanding. ER MD discussed with patient the results and treatment provided. Patient in stable condition. ID arm band removed. Patient educated on pain management and to follow up with PMD. Pain Scale 0/10. Opportunity for questions provided and answered. Medication side effect fact sheet provided.
== END 2020-12-06 23:01 | disposition home or self-care (01) ==
LOC: SED 21:32
DX: Z48.00 Encounter for change or removal of nonsurgical wound dressing (principal); E11.9 Type 2 diabetes mellitus without complications; Z79.899 Other long term (current) drug therapy
CPT/HCPCS: 82962; 99282

== ENCOUNTER 2020-12-15 18:04 | Emergency (ER) | payer OTHER ==
[~2020-12-15] VITALS: Ht 180.3 cm; Wt 102.1 kg
[2020-12-15 18:30] VITALS: BP_SYST 160
--- NOTE | 2020-12-15 18:30 | NUR ---
Patient to ER bed H1 to gown for evaluation. Side rails up.
--- NOTE | 2020-12-15 18:50 | NUR ---
PT MOVED TO BED 2 FOR STITCH REMOVAL.
--- NOTE | 2020-12-15 18:50 | NUR ---
PT AAO BIB WHEELCHAIR FOR STICH REMOVAL. STICHES WERE PLACED ON THE AND ARE DUE TO COME OUT TODAY. WOUND IS WELL APPROXIMATED WITHOUT REDNESS ON PENIS. PT DENIES ANY PAIN CURRENTLY.
[2020-12-15 19:09] VITALS: BP_SYST 160
--- NOTE | 2020-12-15 19:10 | NUR ---
Patient given written and verbal discharge instructions and verbalizes understanding. DR. HECTOR PROCTOR MD discussed with patient the results and treatment provided. Patient in stable condition. ID arm band removed. Patient educated on pain management and to follow up with PMD. Pain Scale 0/10. Opportunity for questions provided and answered.
== END 2020-12-15 19:09 | disposition home or self-care (01) ==
LOC: SED 18:04
DX: S31.21XD Laceration without foreign body of penis, subsequent encounter (principal); Z48.02 Encounter for removal of sutures; E11.9 Type 2 diabetes mellitus without complications; Z79.899 Other long term (current) drug therapy; W18.39XD Other fall on same level, subsequent encounter
CPT/HCPCS: 99281